=== PATIENT | female | born 1965 | race Caucasian/White ===

== ENCOUNTER 2024-04-24 02:25 | Inpatient (IN) | payer MEDICARE, OTHER, SELFPAY ==
[2024-04-24] VITALS (9 sets, daily range): BP systolic 120–142; BP diastolic 62–72; PULSE 109–115; RESP 13–26; TEMP 97.5–98.5; O2SAT 94–95
[~2024-04-24] VITALS: Ht 160 cm; Wt 75.0 kg
[2024-04-24 03:14] LABS: BASOPHILS # (AUTO) 0.1 X10'3 (0-0.2); BASOPHILS % (AUTO) 0.8 % (0-1); EOSINOPHILS # (AUTO) 0.2 X10'3 (0-0.9); EOSINOPHILS % (AUTO) 1.2 % (0-6); HEMATOCRIT 26.4 % (35.0-45.0); HEMOGLOBIN 8.4 g/dl (12.0-16.0); LYMPHOCYTES # (AUTO) 3.2 X10'3 (1.1-4.8); LYMPHOCYTES % (AUTO) 24.5 % (21-51); MEAN CORPUSCULAR HEMOGLOBIN 24.8 PG (27.0-31.0); MEAN CORPUSCULAR HGB CONC 31.9 g/dL (33.0-36.5); MEAN CORPUSCULAR VOLUME 77.8 FL (78-98); MEAN PLATELET VOLUME 8.1 FL (7.4-10.4); MONOCYTES # (AUTO) 1.1 X10'3 (0-0.9); MONOCYTES % (AUTO) 8.9 % (2-12); NEUTROPHILS # (AUTO) 8.3 X10'3 (1.8-7.7); NEUTROPHILS % (AUTO) 64.6 % (42-75); PLATELET COUNT 283 X10'3 (140-440); RED BLOOD COUNT 3.39 X10'6 (4.20-5.60); WHITE BLOOD COUNT 12.9 X10'3 (4.5-11.0)
[2024-04-24 03:22] LABS: ALANINE AMINOTRANSFERASE 38 U/L (12-78); ALBUMIN 1.6 G/DL (3.4-5.0); ALBUMIN/GLOBULIN RATIO 0.3 (1.1-1.5); ALKALINE PHOSPHATASE 103 IU/L (46-116); ANION GAP 8 (8-16); ASPARTATE AMINO TRANSFERASE 38 U/L (10-37); BILIRUBIN,TOTAL 0.2 MG/DL (0.1-1.0); BLOOD UREA NITROGEN 38 MG/DL (7-18); BUN/CREATININE RATIO 19.4 (10.0-20.0); CALCIUM 8.3 MG/DL (8.5-10.1); CHLORIDE 110 MMOL/L (99-107); CREATININE 1.96 MG/DL (0.40-0.90); GLUCOSE 156 MG/DL (70-104); POTASSIUM 4.4 MMOL/L (3.5-5.1); SODIUM 142 MMOL/L (135-145); TOTAL CARBON DIOXIDE 24.4 MMOL/L (24-32); TOTAL PROTEIN 6.3 G/DL (6.4-8.2); eCRCL 25 ML/MIN; eGFR 26 ML/MIN
[2024-04-24 03:33] LABS: PRO BRAIN NATRIURETIC PEPTIDE > 30000 PG/ML (0-125)
[2024-04-24] MEDS ORDERED: heparin 10,000 units/1 ML INJ IV PRN (03:55)
[2024-04-24] MEDS ORDERED: heparin 10,000 units/1 ML INJ IV ONE (03:55)
[2024-04-24] MEDS: furosemide 10 MG/1 ML 10ml inj IV ONE (04:12)
[2024-04-24] MEDS: aspirin 81mg tab.chew PO ONE (04:12)
[2024-04-24 04:34] LABS: APTT 31 SECONDS (22-32); PROTHROMBIN TIME 10.3 SECONDS (9.0-12.0)
[2024-04-24] MEDS: heparin 10,000 units/1 ML INJ IV ONE (04:47)
[2024-04-24] MEDS: heparin 25,000 UNIT/250ml bag 250 ML IV PRN (04:51)
[2024-04-24] MEDS: MESSAGE TO NURSING IV ONE (05:01)
[2024-04-24] MEDS ORDERED: magnesium sulf-water 2g/50mL 50 ML IV PRN (05:30)
[2024-04-24] MEDS ORDERED: magnesium hydroxide 30ml (MOM) UD suspension PO PRN ×2 (05:30→23:10)
[2024-04-24] MEDS ORDERED: potassium Cl 40MEQ/1/2NS 520ml 520 ML IV PRN (05:30)
[2024-04-24] MEDS ORDERED: magnesium sulf-water 4G/100mL 100 ML IV PRN (05:30)
[2024-04-24] MEDS ORDERED: acetaminophen 325mg tablet PO PRN (05:30)
[2024-04-24] MEDS ORDERED: potassium Cl 20 mEq SR tablet PO PRN ×2 (05:30)
[2024-04-24] MEDS ORDERED: mag hydrox/Alum hydrox/simeth 30ml oral suspension PO PRN (05:30)
[2024-04-24] MEDS ORDERED: magnesium Cl slow-release 64mg tablet PO PRN (05:30)
[2024-04-24] MEDS ORDERED: glucagon, human recombinant 1mg kit SUBCUT PRN (07:30)
[2024-04-24] MEDS ORDERED: DEXTROSE 15 GM of carb/4 tabs (each vial/BOTTLE has 4 tablets) PO PRN ×2 (07:30)
[2024-04-24] MEDS ORDERED: dextrose 50%-water 50ml dispensing syringe IV PRN ×2 (07:30)
[2024-04-24 07:58] LABS: MAGNESIUM 3.2 MG/DL (1.5-2.4); PHOSPHORUS 5.3 MG/DL (2.3-4.5)
[2024-04-24] MEDS: K and/or MAG REPLACEMENT MC SCH (08:00)
[2024-04-24] MEDS: atorvastatin 20mg tablet PO SCH (08:57)
[2024-04-24] MEDS: carVEDilol 3.125mg tablet PO SCH (08:58)
[2024-04-24] MEDS ORDERED: NORepinephrine 8 MG in NS 250 ML BAG (32 mcg/ml) IV ONE (09:00)
[2024-04-24] MEDS: furosemide 10 MG/1 ML 10ml inj IV SCH ×2 (09:00→20:00)
[2024-04-24] MEDS: furosemide 40mg/4ml inj IV ONE (10:25)
[2024-04-24 10:39] LABS: FERRITIN 215 NG/ML (8-252)
[2024-04-24 11:02] LABS: % IRON SATURATION 13 % (11-46); IRON 23 UG/DL (49-151); TOTAL IRON BINDING CAPACITY 180 UG/DL (259-388)
[2024-04-24 11:21] LABS: BILIRUBIN,URINE NEGATIVE (Neg); CLARITY,URINE CLEAR (Clear); COLOR,URINE STRAW (Yellow); GLUCOSE, URINE 100 mg/dl (Neg); KETONES,URINE NEGATIVE (Neg); LEUKOCYTE ESTERASE ,URINE NEGATIVE (Neg); NITRITES, URINE NEGATIVE (Neg); OCCULT BLOOD,URINE SMALL (Neg); PROTEIN,URINE 100 mg/dl (Neg); UROBILINOGEN,URINE 0.2 E.U/dL (0.2-1.0)
[2024-04-24 11:25] LABS: UA COLLECTION TYPE STRAIGHT CATH
[2024-04-24 11:27] LABS: WBC,URINE 0-4 /HPF (0-4)
[2024-04-24 11:28] LABS: BACTERIA,URINE NONE SEEN /HPF (Neg); MUCUS STRANDS NONE SEEN /LPF (Neg); SQUAMOUS EPITHELIAL CELL,UR FEW /LPF (FEW)
[2024-04-24] MEDS ORDERED: fentaNYL/PF 50MCG/1 ML 2ML syringe ONE (11:28)
[2024-04-24] MEDS ORDERED: heparin 1,000unit/ml 10ml vial 10 ML ONE (11:28)
[2024-04-24] MEDS ORDERED: iohexol 350MG/ML 100ml bottle IV ONE ×2 (11:28→12:40)
[2024-04-24] MEDS ORDERED: verapamil 2.5 mg/ml inj IV ONE (11:28)
[2024-04-24] MEDS ORDERED: midazolam 1 mg/ML 2ml injection ONE (11:28)
[2024-04-24] MEDS ORDERED: LIDOcaine 1% (10mg/ml) 2ml vial ONE (11:28)
[2024-04-24] MEDS ORDERED: iohexol 350 MG/ML 50ML vial IV ONE (11:28)
[2024-04-24] MEDS ORDERED: nitroGLYCERIN 500mcg/5mL D5W 5 ML IV ONE (11:29)
[2024-04-24] MEDS ORDERED: sodium bicarbonate 1meq/ml inj 150 ML in sodium chloride 0.45% 1,000 ML IV SCH (11:30)
[2024-04-24] MEDS: sodium bicarbonate (8.4%) 1 mEq/ml syringe IV ONE (11:38)
[2024-04-24] MEDS: INSULIN LISPRO 100 UNIT/ML INSULN.PEN MULTI-DOSE SQ SCH (12:00)
[2024-04-24 12:37] LABS: URINE AMPHETAMINE SCREEN NEGATIVE (Neg); URINE BARBITUATE SCREEN NEGATIVE (Neg); URINE BENZODIAZEPINES SCREEN NEGATIVE (Neg); URINE CANNABINOID SCREEN NEGATIVE (Neg); URINE COCAINE SCREEN NEGATIVE (Neg); URINE METHADONE SCREEN NEGATIVE (Neg); URINE OPIATE SCREEN NEGATIVE (Neg); URINE PHENCYCLIDINE SCREEN NEGATIVE (Neg)
[2024-04-24] MEDS ORDERED: DOPamine 400mg/D5W 250ml 250 ML IV ONE (13:14)
[2024-04-24] MEDS ORDERED: DOBUTamine-DoBUTrex 500mg/D5W 250 ML IV ONE (13:17)
[2024-04-24] MEDS ORDERED: furosemide 40mg/4ml inj ONE (13:25)
[2024-04-24] MEDS ORDERED: clopidogrel 300mg tablet ONE (13:29)
[2024-04-24 13:45] LABS: ISTAT HGB ART 7.1 g/dl (12.0-16.0); ISTAT Hct ART 21 %PCV (35-45); ISTAT O2 SATURATION ARTERIAL 88 % (95-98); ISTAT SOURCE ART
[2024-04-24] MEDS ORDERED: HYDROcodone/acetaminophen 10/325mg tab PO PRN ×2 (15:15→15:25)
[2024-04-24] MEDS ORDERED: HYDROcodone/acetaminophen 5mg/325mg tablet PO PRN (15:15)
[2024-04-24] MEDS ORDERED: clopidogrel 300mg tablet PO ONE (15:20)
[2024-04-24] MEDS ORDERED: metoprolol succinate 25mg (24-HOUR) SR. Tablet PO SCH (18:25)
[2024-04-24] MEDS: DOBUTamine 2000 MCG/250ML BAG IV SCH (19:12)
[2024-04-24] MEDS ORDERED: acetylcysteine 200 MG/ml 4ml vial PO ONE (20:00)
[2024-04-24] MEDS: docusate sod 100mg capsule PO SCH (21:30)
[2024-04-24] MEDS: acetylcysteine 200 MG/ml 4ml vial PO SCH (21:32)
[2024-04-25] VITALS (25 sets, daily range): BP systolic 94–135; BP diastolic 54–80; PULSE 83–110; RESP 12–31; TEMP 96.9–98.2; O2SAT 93–100
[2024-04-25] MEDS: HYDROcodone/acetaminophen 10/325mg tab PO PRN (00:11)
[2024-04-25] MEDS: ROSUVASTATIN CALCIUM 5 MG TABLET PO SCH (00:11)
[2024-04-25 05:52] LABS: BASOPHILS # (AUTO) 0.1 X10'3 (0-0.2); BASOPHILS % (AUTO) 0.5 % (0-1); EOSINOPHILS # (AUTO) 0.1 X10'3 (0-0.9); EOSINOPHILS % (AUTO) 0.8 % (0-6); HEMATOCRIT 23.4 % (35.0-45.0); HEMOGLOBIN 7.4 g/dl (12.0-16.0); LYMPHOCYTES # (AUTO) 2.7 X10'3 (1.1-4.8); LYMPHOCYTES % (AUTO) 25.4 % (21-51); MEAN CORPUSCULAR HEMOGLOBIN 24.3 PG (27.0-31.0); MEAN CORPUSCULAR HGB CONC 31.5 g/dL (33.0-36.5); MEAN CORPUSCULAR VOLUME 77.3 FL (78-98); MEAN PLATELET VOLUME 7.5 FL (7.4-10.4); MONOCYTES % (AUTO) 9.7 % (2-12); NEUTROPHILS # (AUTO) 6.7 X10'3 (1.8-7.7); NEUTROPHILS % (AUTO) 63.6 % (42-75); PLATELET COUNT 228 X10'3 (140-440); RED BLOOD COUNT 3.03 X10'6 (4.20-5.60); RED CELL DISTRIBUTION WIDTH 15.2 % (11.5-14.5); WHITE BLOOD COUNT 10.6 X10'3 (4.5-11.0)
[2024-04-25 06:08] LABS: ALANINE AMINOTRANSFERASE 28 U/L (12-78); ALBUMIN 1.2 G/DL (3.4-5.0); ALBUMIN/GLOBULIN RATIO 0.3 (1.1-1.5); ALKALINE PHOSPHATASE 79 IU/L (46-116); ANION GAP 10 (8-16); ASPARTATE AMINO TRANSFERASE 42 U/L (10-37); BILIRUBIN,TOTAL 0.2 MG/DL (0.1-1.0); BLOOD UREA NITROGEN 37 MG/DL (7-18); BUN/CREATININE RATIO 18.5 (10.0-20.0); CALCIUM 7.8 MG/DL (8.5-10.1); CHLORIDE 110 MMOL/L (99-107); CHOL/HDL RATIO 6.8 (0.00-4.99); CHOLESTEROL 246 MG/DL (0-200); GLUCOSE 125 MG/DL (70-104); HDL CHOLESTEROL 36 MG/DL (35-60); LDL CHOLESTEROL 153 MG/DL (50-100); POTASSIUM 4.2 MMOL/L (3.5-5.1); SODIUM 145 MMOL/L (135-145); TOTAL CARBON DIOXIDE 24.8 MMOL/L (24-32); TOTAL PROTEIN 5.3 G/DL (6.4-8.2); TRIGLYCERIDES 199 MG/DL (20-135); eCRCL 24 ML/MIN; eGFR 25 ML/MIN
[2024-04-25 06:36] LABS: PRO BRAIN NATRIURETIC PEPTIDE > 30000 PG/ML (0-125)
[2024-04-25] MEDS: lisinopril 5mg tablet PO SCH (07:58)
[2024-04-25] MEDS: DAPAGLIFLOZIN 10MG TABLET PO SCH (07:59)
[2024-04-25] MEDS ORDERED: losartan 50mg tablet PO SCH (08:00)
[2024-04-25] MEDS ORDERED: aspirin 81mg, enteric-coated 1 TAB TABLET.DR PO SCH (08:00)
[2024-04-25] MEDS: aspirin 81mg, enteric-coated 1 TAB TABLET.DR PO SCH (08:00)
[2024-04-25] MEDS: clopidogrel 75mg tablet PO SCH (08:00)
[2024-04-25] MEDS ORDERED: ROSUVASTATIN CALCIUM 5 MG TABLET PO SCH (08:00)
[2024-04-25] MEDS: carVEDilol 3.125mg tablet PO SCH (08:01)
[2024-04-25] MEDS ORDERED: aspirin 81mg tab.chew PO SCH (08:30)
[2024-04-25] MEDS ORDERED: LIDOcaine 1% (10mg/ml) 2ml vial ONE (11:32)
[2024-04-25] MEDS ORDERED: midazolam 1 mg/ML 2ml injection ONE (11:33)
[2024-04-25] MEDS ORDERED: heparin 1,000unit/ml 10ml vial 10 ML ONE (11:33)
[2024-04-25] MEDS ORDERED: verapamil 2.5 mg/ml inj IV ONE (11:33)
[2024-04-25] MEDS ORDERED: fentaNYL/PF 50MCG/1 ML 2ML syringe ONE (11:33)
[2024-04-25] MEDS ORDERED: nitroGLYCERIN 500mcg/5mL D5W 0 ML IV ONE (11:34)
[2024-04-25] MEDS ORDERED: iohexol 350MG/ML 100ml bottle IV ONE ×2 (11:34→13:08)
[2024-04-25] MEDS ORDERED: nitroGLYCERIN 500mcg/5mL D5W 5 ML IV ONE (11:36)
[2024-04-25] MEDS: sodium bicarbonate 1meq/ml inj 150 ML in sodium chloride 0.45% 1,000 ML IV ONE (12:10)
[2024-04-25] MEDS ORDERED: heparin 25,000 UNIT/250ml bag 250 ML IV ONE (13:24)
[2024-04-25] MEDS ORDERED: phenylephrine 10mg/ml inj. -priapism dosing ONE (13:29)
[2024-04-25] MEDS ORDERED: heparin 1,000 UNITS/NS 500ml 500 ML ONE (13:42)
[2024-04-25] MEDS ORDERED: epiNEPHrine 0.1mg/ml 10ml syringe ONE (14:09)
[2024-04-25] MEDS ORDERED: clopidogrel 300mg tablet ONE (14:20)
[2024-04-25] MEDS: propofol 1000mg/100ml bottle 100 ML IV SCH (15:20)
[2024-04-25] MEDS ORDERED: fentaNYL/PF 50MCG/1 ML 2ML syringe IV PRN (15:20)
[2024-04-25] MEDS: FENTANYL-0.9 % NACL/PF 100 ML IV SCH (15:20)
[2024-04-25 15:36] LABS: ABG BASE EXCESS -4.8 mmol/L (-2.0-3.0); ABG HCO3 19.2 mmol/L (21.0-28.0); ABG OXYGEN SATURATION 99.8 % (94.0-98.0); ABG PCO2 (T) 29.2 mmHg (32.0-45.0); ABG PH (T) 7.431 (7.350-7.450); ABG PO2 (T) 209.5 mmHg (83.0-108.0); FCOHb 0.3 % (0.5-1.5); FHHb 0.2 % (0.0-5.0); FMetHb 0.3 % (0.0-1.5); FO2Hb 99.2 % (94.0-98.0); MODE VENT - PRVC; PATIENT TEMPERATURE 35.9; PEEP 5 cm H2O; RESPIRATORY RATE 16 b/min; TIDAL VOLUME 450 mL
[2024-04-25 16:20] LABS: BASOPHILS % (AUTO) 0.3 % (0-1); EOSINOPHILS # (AUTO) 0.1 X10'3 (0-0.9); EOSINOPHILS % (AUTO) 0.4 % (0-6); LYMPHOCYTES # (AUTO) 1.6 X10'3 (1.1-4.8); LYMPHOCYTES % (AUTO) 11.8 % (21-51); MEAN CORPUSCULAR HEMOGLOBIN 24.3 PG (27.0-31.0); MEAN CORPUSCULAR HGB CONC 31.4 g/dL (33.0-36.5); MEAN CORPUSCULAR VOLUME 77.4 FL (78-98); MEAN PLATELET VOLUME 7.5 FL (7.4-10.4); MONOCYTES # (AUTO) 0.9 X10'3 (0-0.9); MONOCYTES % (AUTO) 6.7 % (2-12); NEUTROPHILS % (AUTO) 80.8 % (42-75); PLATELET COUNT 232 X10'3 (140-440); RED BLOOD COUNT 2.66 X10'6 (4.20-5.60); RED CELL DISTRIBUTION WIDTH 14.8 % (11.5-14.5); WHITE BLOOD COUNT 13.7 X10'3 (4.5-11.0)
[2024-04-25 16:26] LABS: HEMATOCRIT 20.6 % (35.0-45.0); HEMOGLOBIN 6.5 g/dl (12.0-16.0)
[2024-04-25 16:43] LABS: ALANINE AMINOTRANSFERASE 32 U/L (12-78); ALBUMIN/GLOBULIN RATIO 0.3 (1.1-1.5); ALKALINE PHOSPHATASE 89 IU/L (46-116); ANION GAP 10 (8-16); ASPARTATE AMINO TRANSFERASE 47 U/L (10-37); BILIRUBIN,TOTAL 0.5 MG/DL (0.1-1.0); BLOOD UREA NITROGEN 34 MG/DL (7-18); BUN/CREATININE RATIO 17.3 (10.0-20.0); CALCIUM 7.1 MG/DL (8.5-10.1); CHLORIDE 108 MMOL/L (99-107); CREATININE 1.96 MG/DL (0.40-0.90); GLUCOSE 276 MG/DL (70-104); POTASSIUM 3.9 MMOL/L (3.5-5.1); SODIUM 139 MMOL/L (135-145); TOTAL CARBON DIOXIDE 20.7 MMOL/L (24-32); TOTAL PROTEIN 4.6 G/DL (6.4-8.2); eCRCL 25 ML/MIN; eGFR 26 ML/MIN
[2024-04-25] MEDS ORDERED: OXAZEpam 15mg capsule PO PRN (16:55)
[2024-04-25] MEDS ORDERED: FERR236T3 PO (17:46)
[2024-04-25] MEDS ORDERED: MULT-1085 PO (17:46)
[2024-04-25] MEDS ORDERED: CYAN100097 PO (17:46)
[2024-04-25] MEDS ORDERED: MAGN400C PO (17:46)
[2024-04-25] MEDS ORDERED: CYAN100020 SL (17:46)
[2024-04-25] MEDS ORDERED: THIA100T70 PO (17:46)
[2024-04-25] MEDS ORDERED: CHOL100025 PO (17:46)
[2024-04-25] MEDS ORDERED: ASCO100031 PO (17:46)
[2024-04-25] MEDS: furosemide 40mg/4ml inj IV SCH (20:33)
[2024-04-25] MEDS: NORepinephrine 8mg/ 250ml NS 250 ML IV SCH (20:50)
[2024-04-25] MEDS: INSULIN LISPRO 100 UNIT/ML INSULN.PEN MULTI-DOSE SQ SCH (21:42)
[2024-04-26] VITALS (40 sets, daily range): BP systolic 83–149; BP diastolic 44–86; PULSE 76–107; RESP 12–26; TEMP 98.5; O2SAT 93–98
[2024-04-26 01:58] LABS: BASOPHILS % (AUTO) 0.2 % (0-1); EOSINOPHILS % (AUTO) 0.3 % (0-6); HEMATOCRIT 30.9 % (35.0-45.0); LYMPHOCYTES # (AUTO) 1.9 X10'3 (1.1-4.8); LYMPHOCYTES % (AUTO) 13.4 % (21-51); MEAN CORPUSCULAR HEMOGLOBIN 25.1 PG (27.0-31.0); MEAN CORPUSCULAR HGB CONC 32.2 g/dL (33.0-36.5); MEAN PLATELET VOLUME 7.8 FL (7.4-10.4); MONOCYTES # (AUTO) 1.4 X10'3 (0-0.9); MONOCYTES % (AUTO) 9.5 % (2-12); NEUTROPHILS # (AUTO) 11.1 X10'3 (1.8-7.7); NEUTROPHILS % (AUTO) 76.6 % (42-75); PLATELET COUNT 213 X10'3 (140-440); RED BLOOD COUNT 3.96 X10'6 (4.20-5.60); RED CELL DISTRIBUTION WIDTH 15.7 % (11.5-14.5); WHITE BLOOD COUNT 14.5 X10'3 (4.5-11.0)
[2024-04-26 02:15] LABS: ALANINE AMINOTRANSFERASE 31 U/L (12-78); ALBUMIN 1.2 G/DL (3.4-5.0); ALBUMIN/GLOBULIN RATIO 0.3 (1.1-1.5); ALKALINE PHOSPHATASE 85 IU/L (46-116); ANION GAP 8 (8-16); ASPARTATE AMINO TRANSFERASE 48 U/L (10-37); BILIRUBIN,TOTAL 1.3 MG/DL (0.1-1.0); BLOOD UREA NITROGEN 33 MG/DL (7-18); BUN/CREATININE RATIO 16.7 (10.0-20.0); CALCIUM 7.3 MG/DL (8.5-10.1); CHLORIDE 111 MMOL/L (99-107); CREATININE 1.98 MG/DL (0.40-0.90); GLUCOSE 124 MG/DL (70-104); SODIUM 143 MMOL/L (135-145); TOTAL CARBON DIOXIDE 23.9 MMOL/L (24-32); TRIGLYCERIDES 164 MG/DL (20-135); eCRCL 25 ML/MIN; eGFR 26 ML/MIN
[2024-04-26 03:28] LABS: ABG BASE EXCESS -2.8 mmol/L (-2.0-3.0); ABG HCO3 21.2 mmol/L (21.0-28.0); ABG OXYGEN SATURATION 95.3 % (94.0-98.0); ABG PCO2 (T) 33.4 mmHg (32.0-45.0); ABG PH (T) 7.419 (7.350-7.450); ALLEN'S TEST POSITIVE; FCOHb 0.9 % (0.5-1.5); FHHb 4.6 % (0.0-5.0); FMetHb 0.3 % (0.0-1.5); FO2Hb 94.2 % (94.0-98.0); MODE VENT - AC; PATIENT TEMPERATURE 36.8; PEEP 5 cm H2O; RESPIRATORY RATE 12 b/min; TIDAL VOLUME 450 mL; TOTAL HEMOGLOBIN 10.6 G/dl (12.0-16.0)
[2024-04-26] MEDS: metoprolol succinate 25mg (24-HOUR) SR. Tablet PO SCH (08:00)
[2024-04-26] MEDS: metolazone 2.5mg tablet PO SCH (10:57)
[2024-04-26] MEDS: dexamethasone 4mg/ml inj IV SCH (13:31)
[2024-04-26] MEDS: furosemide 40mg/4ml inj IV SCH (13:31)
[2024-04-26] MEDS: mineral oil/petrolatum ophthal oint EACHEYE SCH (20:00)
[2024-04-26] MEDS: docusate sodium 100mg/10ml UD cup PO SCH (20:58)
[2024-04-27] VITALS (39 sets, daily range): BP systolic 99–145; BP diastolic 50–88; PULSE 86–117; RESP 10–34; O2SAT 89–99
[2024-04-27 02:48] LABS: BASOPHILS % (AUTO) 0.1 % (0-1); EOSINOPHILS % (AUTO) 0 % (0-6); HEMATOCRIT 32.2 % (35.0-45.0); HEMOGLOBIN 10.7 g/dl (12.0-16.0); LYMPHOCYTES # (AUTO) 1.1 X10'3 (1.1-4.8); LYMPHOCYTES % (AUTO) 6.3 % (21-51); MEAN CORPUSCULAR HEMOGLOBIN 25.3 PG (27.0-31.0); MEAN CORPUSCULAR HGB CONC 33.1 g/dL (33.0-36.5); MEAN CORPUSCULAR VOLUME 76.5 FL (78-98); MEAN PLATELET VOLUME 7.6 FL (7.4-10.4); MONOCYTES # (AUTO) 0.5 X10'3 (0-0.9); NEUTROPHILS # (AUTO) 15.3 X10'3 (1.8-7.7); NEUTROPHILS % (AUTO) 90.6 % (42-75); PLATELET COUNT 240 X10'3 (140-440); RED BLOOD COUNT 4.21 X10'6 (4.20-5.60); RED CELL DISTRIBUTION WIDTH 16.3 % (11.5-14.5); WHITE BLOOD COUNT 16.9 X10'3 (4.5-11.0)
[2024-04-27 03:10] LABS: ALANINE AMINOTRANSFERASE 28 U/L (12-78); ALBUMIN 1.1 G/DL (3.4-5.0); ALBUMIN/GLOBULIN RATIO 0.3 (1.1-1.5); ALKALINE PHOSPHATASE 97 IU/L (46-116); ANION GAP 11 (8-16); ASPARTATE AMINO TRANSFERASE 34 U/L (10-37); BILIRUBIN,TOTAL 0.5 MG/DL (0.1-1.0); BLOOD UREA NITROGEN 38 MG/DL (7-18); BUN/CREATININE RATIO 16.2 (10.0-20.0); CALCIUM 7.9 MG/DL (8.5-10.1); CHLORIDE 108 MMOL/L (99-107); CREATININE 2.35 MG/DL (0.40-0.90); GLUCOSE 170 MG/DL (70-104); MAGNESIUM 2.5 MG/DL (1.5-2.4); PHOSPHORUS 6.6 MG/DL (2.3-4.5); POTASSIUM 3.3 MMOL/L (3.5-5.1); PREALBUMIN 11.8 MG/DL (19-36); SODIUM 143 MMOL/L (135-145); TOTAL CARBON DIOXIDE 23.7 MMOL/L (24-32); TOTAL PROTEIN 5.2 G/DL (6.4-8.2); eCRCL 21 ML/MIN; eGFR 21 ML/MIN
[2024-04-27 03:44] LABS: PRO BRAIN NATRIURETIC PEPTIDE > 30000 PG/ML (0-125)
[2024-04-27] MEDS: potassium Cl 20mEq/100mL bag 100 ML IV SCH (03:59)
[2024-04-27 04:55] LABS: ABG BASE EXCESS -2.7 mmol/L (-2.0-3.0); ABG HCO3 19.6 mmol/L (21.0-28.0); ABG PCO2 (T) 24.7 mmHg (32.0-45.0); ABG PH (T) 7.511 (7.350-7.450); ABG PO2 (T) 59.6 mmHg (83.0-108.0); ALLEN'S TEST Modified; FMetHb 0.3 % (0.0-1.5); FO2Hb 92.7 % (94.0-98.0); PATIENT TEMPERATURE 35.2; PEEP 5 cm H2O; RESPIRATORY RATE 16 b/min; TIDAL VOLUME 450 mL; TOTAL HEMOGLOBIN 11.3 G/dl (12.0-16.0)
[2024-04-27] MEDS ORDERED: racepinephrine 11.25mg/0.5ml nebule IH PRN (09:00)
[2024-04-27] MEDS: albuterol 2.5 MG/3 ML nebule NEB SCH (12:11)
[2024-04-27] MEDS ORDERED: potassium Cl 40MEQ/1/2NS 520ml 520 ML IV PRN (17:10)
[2024-04-27] MEDS ORDERED: magnesium Cl slow-release 64mg tablet PO PRN (17:10)
[2024-04-27] MEDS ORDERED: potassium Cl 20 mEq SR tablet PO PRN (17:10)
[2024-04-27] MEDS ORDERED: magnesium sulf-water 4G/100mL 100 ML IV PRN (17:10)
[2024-04-27] MEDS ORDERED: magnesium sulf-water 2g/50mL 50 ML IV PRN (17:10)
[2024-04-27] MEDS: furosemide 40mg/4ml inj IV SCH (20:40)
[2024-04-28] VITALS (39 sets, daily range): BP systolic 112–146; BP diastolic 58–81; PULSE 86–103; RESP 14–22; TEMP 97.7–98.6; O2SAT 93–100
[2024-04-28 02:05] LABS: BASOPHILS % (AUTO) 0.3 % (0-1); EOSINOPHILS % (AUTO) 0 % (0-6); HEMATOCRIT 34.3 % (35.0-45.0); HEMOGLOBIN 10.9 g/dl (12.0-16.0); LYMPHOCYTES # (AUTO) 1.2 X10'3 (1.1-4.8); LYMPHOCYTES % (AUTO) 6.2 % (21-51); MEAN CORPUSCULAR HEMOGLOBIN 24.8 PG (27.0-31.0); MEAN CORPUSCULAR HGB CONC 31.7 g/dL (33.0-36.5); MEAN CORPUSCULAR VOLUME 78.2 FL (78-98); MEAN PLATELET VOLUME 7.7 FL (7.4-10.4); MONOCYTES # (AUTO) 1.1 X10'3 (0-0.9); MONOCYTES % (AUTO) 5.9 % (2-12); NEUTROPHILS # (AUTO) 16.3 X10'3 (1.8-7.7); NEUTROPHILS % (AUTO) 87.6 % (42-75); PLATELET COUNT 280 X10'3 (140-440); RED BLOOD COUNT 4.39 X10'6 (4.20-5.60); RED CELL DISTRIBUTION WIDTH 16.3 % (11.5-14.5); WHITE BLOOD COUNT 18.7 X10'3 (4.5-11.0)
[2024-04-28 02:25] LABS: ALANINE AMINOTRANSFERASE 44 U/L (12-78); ALBUMIN 1.2 G/DL (3.4-5.0); ALBUMIN/GLOBULIN RATIO 0.3 (1.1-1.5); ALKALINE PHOSPHATASE 114 IU/L (46-116); ANION GAP 5 (8-16); ASPARTATE AMINO TRANSFERASE 43 U/L (10-37); BILIRUBIN,TOTAL 0.3 MG/DL (0.1-1.0); BLOOD UREA NITROGEN 49 MG/DL (7-18); BUN/CREATININE RATIO 16.7 (10.0-20.0); CALCIUM 8.1 MG/DL (8.5-10.1); CHLORIDE 107 MMOL/L (99-107); CREATININE 2.93 MG/DL (0.40-0.90); GLUCOSE 226 MG/DL (70-104); MAGNESIUM 2.7 MG/DL (1.5-2.4); PHOSPHORUS 6.8 MG/DL (2.3-4.5); POTASSIUM 4.1 MMOL/L (3.5-5.1); SODIUM 140 MMOL/L (135-145); TOTAL CARBON DIOXIDE 28.3 MMOL/L (24-32); TOTAL PROTEIN 5.4 G/DL (6.4-8.2); eCRCL 17 ML/MIN; eGFR 16 ML/MIN
[2024-04-28 02:59] LABS: PRO BRAIN NATRIURETIC PEPTIDE > 30000 PG/ML (0-125)
[2024-04-28] MEDS: ondansetron/PF 4mg/2ml inj IV PRN (10:49)
[2024-04-28 12:48] LABS: OSMOLALITY 315 MOSM/K (280-300)
[2024-04-29] VITALS (22 sets, daily range): BP systolic 116–147; BP diastolic 57–76; PULSE 84–101; RESP 14–25; TEMP 97.5–98; O2SAT 93–97
[2024-04-29] MEDS: HALLS - SOOTHE MENTHOL 1.8 MG cough drop LOZENGE MM PRN (04:40)
[2024-04-29 07:18] LABS: BASOPHILS % (AUTO) 0.1 % (0-1); EOSINOPHILS % (AUTO) 0.3 % (0-6); HEMATOCRIT 34.2 % (35.0-45.0); HEMOGLOBIN 10.8 g/dl (12.0-16.0); LYMPHOCYTES # (AUTO) 2.5 X10'3 (1.1-4.8); LYMPHOCYTES % (AUTO) 16.9 % (21-51); MEAN CORPUSCULAR HEMOGLOBIN 24.7 PG (27.0-31.0); MEAN CORPUSCULAR HGB CONC 31.7 g/dL (33.0-36.5); MEAN CORPUSCULAR VOLUME 78.1 FL (78-98); MEAN PLATELET VOLUME 7.6 FL (7.4-10.4); MONOCYTES # (AUTO) 1.5 X10'3 (0-0.9); MONOCYTES % (AUTO) 10.1 % (2-12); NEUTROPHILS # (AUTO) 10.6 X10'3 (1.8-7.7); NEUTROPHILS % (AUTO) 72.6 % (42-75); PLATELET COUNT 282 X10'3 (140-440); RED BLOOD COUNT 4.38 X10'6 (4.20-5.60); RED CELL DISTRIBUTION WIDTH 16.4 % (11.5-14.5); WHITE BLOOD COUNT 14.7 X10'3 (4.5-11.0)
[2024-04-29 07:42] LABS: ALANINE AMINOTRANSFERASE 30 U/L (12-78); ALBUMIN 1.2 G/DL (3.4-5.0); ALBUMIN/GLOBULIN RATIO 0.3 (1.1-1.5); ALKALINE PHOSPHATASE 96 IU/L (46-116); ANION GAP 11 (8-16); ASPARTATE AMINO TRANSFERASE 31 U/L (10-37); BILIRUBIN,TOTAL 0.2 MG/DL (0.1-1.0); BLOOD UREA NITROGEN 52 MG/DL (7-18); BUN/CREATININE RATIO 17.6 (10.0-20.0); CALCIUM 8.3 MG/DL (8.5-10.1); CHLORIDE 109 MMOL/L (99-107); CREATININE 2.96 MG/DL (0.40-0.90); GLUCOSE 109 MG/DL (70-104); POTASSIUM 3.6 MMOL/L (3.5-5.1); SODIUM 144 MMOL/L (135-145); TOTAL PROTEIN 5.3 G/DL (6.4-8.2); eCRCL 17 ML/MIN; eGFR 16 ML/MIN
[2024-04-29] MEDS: lactose-reduced food (Ensure Enlive) - 237ml bottle PO SCH ×2 (13:00→18:00)
[2024-04-29] MEDS: CefTRIAXone/D5W-Rocephin 1gm 50 ML IV SCH (17:28)
[2024-04-29] MEDS: azithromycin/NS 500mg/250ml 250 ML IV SCH (17:29)
[2024-04-29] MEDS ORDERED: baclofen 10mg tablet PO PRN (18:00)
[2024-04-30] VITALS (22 sets, daily range): BP systolic 116–154; BP diastolic 57–79; PULSE 80–106; RESP 10–26; TEMP 96.6–98.5; O2SAT 90–98
[2024-04-30] MEDS: INSULIN LISPRO 100 UNIT/ML INSULN.PEN MULTI-DOSE SQ SCH (07:00)
[2024-04-30 08:13] LABS: BASOPHILS # (AUTO) 0.1 X10'3 (0-0.2); BASOPHILS % (AUTO) 0.4 % (0-1); EOSINOPHILS # (AUTO) 0.1 X10'3 (0-0.9); EOSINOPHILS % (AUTO) 0.6 % (0-6); HEMATOCRIT 34.3 % (35.0-45.0); HEMOGLOBIN 10.9 g/dl (12.0-16.0); LYMPHOCYTES # (AUTO) 1.9 X10'3 (1.1-4.8); LYMPHOCYTES % (AUTO) 14.9 % (21-51); MEAN CORPUSCULAR HGB CONC 31.7 g/dL (33.0-36.5); MEAN CORPUSCULAR VOLUME 78.8 FL (78-98); MEAN PLATELET VOLUME 7.4 FL (7.4-10.4); MONOCYTES # (AUTO) 1.2 X10'3 (0-0.9); MONOCYTES % (AUTO) 9.3 % (2-12); NEUTROPHILS # (AUTO) 9.3 X10'3 (1.8-7.7); NEUTROPHILS % (AUTO) 74.8 % (42-75); PLATELET COUNT 253 X10'3 (140-440); RED BLOOD COUNT 4.35 X10'6 (4.20-5.60); RED CELL DISTRIBUTION WIDTH 16.2 % (11.5-14.5); WHITE BLOOD COUNT 12.4 X10'3 (4.5-11.0)
[2024-04-30 08:33] LABS: ALANINE AMINOTRANSFERASE 26 U/L (12-78); ALBUMIN 1.1 G/DL (3.4-5.0); ALBUMIN/GLOBULIN RATIO 0.3 (1.1-1.5); ALKALINE PHOSPHATASE 97 IU/L (46-116); ANION GAP 14 (8-16); ASPARTATE AMINO TRANSFERASE 23 U/L (10-37); BILIRUBIN,TOTAL 0.3 MG/DL (0.1-1.0); BLOOD UREA NITROGEN 49 MG/DL (7-18); BUN/CREATININE RATIO 17.8 (10.0-20.0); CALCIUM 8.2 MG/DL (8.5-10.1); CHLORIDE 110 MMOL/L (99-107); CREATININE 2.75 MG/DL (0.40-0.90); GLUCOSE 81 MG/DL (70-104); MAGNESIUM 2.8 MG/DL (1.5-2.4); PHOSPHORUS 4.9 MG/DL (2.3-4.5); POTASSIUM 3.3 MMOL/L (3.5-5.1); SODIUM 147 MMOL/L (135-145); TOTAL CARBON DIOXIDE 22.9 MMOL/L (24-32); TOTAL PROTEIN 5.1 G/DL (6.4-8.2); eCRCL 18 ML/MIN; eGFR 18 ML/MIN
[2024-04-30] MEDS: potassium Cl 20 mEq SR tablet PO PRN (10:32)
[2024-04-30] MEDS: predniSONE 20 mg tablet PO SCH (10:36)
[2024-05-01] VITALS (32 sets, daily range): BP systolic 120–153; BP diastolic 51–79; PULSE 95–120; RESP 14–34; TEMP 97.1–98.5; O2SAT 92–100
[2024-05-01] MEDS: ketorolac trometh 15mg/ml vial 15 MG/ML ML IV ONE (04:59)
[2024-05-01 06:44] LABS: BASOPHILS # (AUTO) 0.1 X10'3 (0-0.2); BASOPHILS % (AUTO) 0.5 % (0-1); EOSINOPHILS # (AUTO) 0.1 X10'3 (0-0.9); EOSINOPHILS % (AUTO) 0.5 % (0-6); HEMATOCRIT 36.3 % (35.0-45.0); HEMOGLOBIN 11.5 g/dl (12.0-16.0); LYMPHOCYTES # (AUTO) 1.8 X10'3 (1.1-4.8); LYMPHOCYTES % (AUTO) 13.1 % (21-51); MEAN CORPUSCULAR HEMOGLOBIN 24.8 PG (27.0-31.0); MEAN CORPUSCULAR HGB CONC 31.8 g/dL (33.0-36.5); MEAN CORPUSCULAR VOLUME 77.9 FL (78-98); MEAN PLATELET VOLUME 7.1 FL (7.4-10.4); MONOCYTES # (AUTO) 1.3 X10'3 (0-0.9); MONOCYTES % (AUTO) 9.6 % (2-12); NEUTROPHILS # (AUTO) 10.4 X10'3 (1.8-7.7); NEUTROPHILS % (AUTO) 76.3 % (42-75); PLATELET COUNT 267 X10'3 (140-440); RED BLOOD COUNT 4.65 X10'6 (4.20-5.60); WHITE BLOOD COUNT 13.6 X10'3 (4.5-11.0)
[2024-05-01 07:01] LABS: ALANINE AMINOTRANSFERASE 27 U/L (12-78); ALBUMIN 1.2 G/DL (3.4-5.0); ALBUMIN/GLOBULIN RATIO 0.3 (1.1-1.5); ALKALINE PHOSPHATASE 95 IU/L (46-116); ANION GAP 9 (8-16); ASPARTATE AMINO TRANSFERASE 19 U/L (10-37); BILIRUBIN,TOTAL 0.2 MG/DL (0.1-1.0); BLOOD UREA NITROGEN 51 MG/DL (7-18); CALCIUM 8.4 MG/DL (8.5-10.1); CHLORIDE 111 MMOL/L (99-107); CREATININE 2.68 MG/DL (0.40-0.90); GLUCOSE 153 MG/DL (70-104); MAGNESIUM 2.8 MG/DL (1.5-2.4); PHOSPHORUS 4.3 MG/DL (2.3-4.5); POTASSIUM 3.8 MMOL/L (3.5-5.1); PREALBUMIN 16.4 MG/DL (19-36); SODIUM 147 MMOL/L (135-145); TOTAL CARBON DIOXIDE 26.6 MMOL/L (24-32); TOTAL PROTEIN 5.3 G/DL (6.4-8.2); eCRCL 18 ML/MIN; eGFR 18 ML/MIN
[2024-05-01 08:27] LABS: ISTAT HGB MIX 6.8 g/dl (12.0-16.0); ISTAT Hct MIX 20 %PCV (35-45); ISTAT O2 SATURATION MIX VENOUS 48 % (60-80); ISTAT SOURCE VEN
[2024-05-01] MEDS: metoclopramide 5 mg/ml inj IV PRN (08:45)
[2024-05-01] MEDS: furosemide 20MG tablet PO ONE (14:21)
[2024-05-02] VITALS (27 sets, daily range): BP systolic 132–159; BP diastolic 42–89; PULSE 97–116; RESP 15–25; TEMP 97.1–97.9; O2SAT 94–98
[2024-05-02 05:56] LABS: BASOPHILS % (AUTO) 0.1 % (0-1); EOSINOPHILS # (AUTO) 0.1 X10'3 (0-0.9); EOSINOPHILS % (AUTO) 0.8 % (0-6); HEMATOCRIT 34.2 % (35.0-45.0); HEMOGLOBIN 10.6 g/dl (12.0-16.0); LYMPHOCYTES # (AUTO) 2.5 X10'3 (1.1-4.8); LYMPHOCYTES % (AUTO) 14.8 % (21-51); MEAN CORPUSCULAR HEMOGLOBIN 24.7 PG (27.0-31.0); MEAN CORPUSCULAR VOLUME 79.6 FL (78-98); MEAN PLATELET VOLUME 6.8 FL (7.4-10.4); MONOCYTES # (AUTO) 1.7 X10'3 (0-0.9); MONOCYTES % (AUTO) 10.1 % (2-12); NEUTROPHILS # (AUTO) 12.6 X10'3 (1.8-7.7); NEUTROPHILS % (AUTO) 74.2 % (42-75); PLATELET COUNT 291 X10'3 (140-440); RED BLOOD COUNT 4.29 X10'6 (4.20-5.60); RED CELL DISTRIBUTION WIDTH 16.1 % (11.5-14.5)
[2024-05-02 06:14] LABS: ALANINE AMINOTRANSFERASE 23 U/L (12-78); ALBUMIN 1.2 G/DL (3.4-5.0); ALBUMIN/GLOBULIN RATIO 0.3 (1.1-1.5); ALKALINE PHOSPHATASE 94 IU/L (46-116); ANION GAP 11 (8-16); ASPARTATE AMINO TRANSFERASE 18 U/L (10-37); BILIRUBIN,TOTAL 0.2 MG/DL (0.1-1.0); BLOOD UREA NITROGEN 52 MG/DL (7-18); BUN/CREATININE RATIO 20.6 (10.0-20.0); CALCIUM 8.3 MG/DL (8.5-10.1); CHLORIDE 111 MMOL/L (99-107); CREATININE 2.52 MG/DL (0.40-0.90); GLUCOSE 248 MG/DL (70-104); MAGNESIUM 2.7 MG/DL (1.5-2.4); PHOSPHORUS 3.6 MG/DL (2.3-4.5); POTASSIUM 3.5 MMOL/L (3.5-5.1); SODIUM 146 MMOL/L (135-145); TOTAL CARBON DIOXIDE 24.5 MMOL/L (24-32); TOTAL PROTEIN 5.1 G/DL (6.4-8.2); eCRCL 19 ML/MIN; eGFR 19 ML/MIN
[2024-05-02] MEDS ORDERED: DEXTROSE 15 GM of carb/4 tabs (each vial/BOTTLE has 4 tablets) PO PRN ×2 (17:45)
[2024-05-02] MEDS ORDERED: glucagon, human recombinant 1mg kit SUBCUT PRN (17:45)
[2024-05-02] MEDS ORDERED: dextrose 50%-water 50ml dispensing syringe IV PRN ×2 (17:45)
[2024-05-02] MEDS: INSULIN LISPRO 100 UNIT/ML INSULN.PEN MULTI-DOSE SQ SCH (21:51)
[2024-05-02] MEDS: INSULIN LISPRO 100 UNIT/ML INSULN.PEN MULTI-DOSE SQ ONE (23:43)
[2024-05-03] VITALS (17 sets, daily range): BP systolic 119–160; BP diastolic 62–85; PULSE 63–111; RESP 15–25; TEMP 97–97.6; O2SAT 92–99
[2024-05-03 06:59] LABS: BASOPHILS # (AUTO) 0.1 X10'3 (0-0.2); BASOPHILS % (AUTO) 0.3 % (0-1); EOSINOPHILS # (AUTO) 0.3 X10'3 (0-0.9); EOSINOPHILS % (AUTO) 1.5 % (0-6); HEMATOCRIT 32.9 % (35.0-45.0); HEMOGLOBIN 10.4 g/dl (12.0-16.0); LYMPHOCYTES # (AUTO) 3.5 X10'3 (1.1-4.8); LYMPHOCYTES % (AUTO) 19.6 % (21-51); MEAN CORPUSCULAR HEMOGLOBIN 24.8 PG (27.0-31.0); MEAN CORPUSCULAR HGB CONC 31.7 g/dL (33.0-36.5); MEAN CORPUSCULAR VOLUME 78.3 FL (78-98); MEAN PLATELET VOLUME 6.9 FL (7.4-10.4); MONOCYTES # (AUTO) 1.8 X10'3 (0-0.9); MONOCYTES % (AUTO) 10.4 % (2-12); NEUTROPHILS # (AUTO) 12.1 X10'3 (1.8-7.7); NEUTROPHILS % (AUTO) 68.2 % (42-75); PLATELET COUNT 271 X10'3 (140-440); RED BLOOD COUNT 4.21 X10'6 (4.20-5.60); RED CELL DISTRIBUTION WIDTH 15.6 % (11.5-14.5); WHITE BLOOD COUNT 17.7 X10'3 (4.5-11.0)
[2024-05-03 07:14] LABS: ALANINE AMINOTRANSFERASE 27 U/L (12-78); ALBUMIN 1.2 G/DL (3.4-5.0); ALBUMIN/GLOBULIN RATIO 0.3 (1.1-1.5); ALKALINE PHOSPHATASE 107 IU/L (46-116); ANION GAP 9 (8-16); ASPARTATE AMINO TRANSFERASE 16 U/L (10-37); BILIRUBIN,TOTAL 0.1 MG/DL (0.1-1.0); BLOOD UREA NITROGEN 45 MG/DL (7-18); BUN/CREATININE RATIO 21.2 (10.0-20.0); CALCIUM 8.1 MG/DL (8.5-10.1); CHLORIDE 108 MMOL/L (99-107); CREATININE 2.12 MG/DL (0.40-0.90); GLUCOSE 246 MG/DL (70-104); MAGNESIUM 2.6 MG/DL (1.5-2.4); PHOSPHORUS 3.2 MG/DL (2.3-4.5); POTASSIUM 3.7 MMOL/L (3.5-5.1); SODIUM 143 MMOL/L (135-145); TOTAL CARBON DIOXIDE 26.2 MMOL/L (24-32); TOTAL PROTEIN 5.1 G/DL (6.4-8.2); TRIGLYCERIDES 195 MG/DL (20-135); eCRCL 23 ML/MIN; eGFR 24 ML/MIN
[2024-05-03] MEDS: lisinopril 10 MG tablet PO SCH (12:23)
[2024-05-03] MEDS: carvedilol 6.25mg tablet PO SCH (12:23)
[2024-05-03] MEDS: EMPAGLIFLOZIN 10 MG TABLET PO SCH (12:24)
[2024-05-03] MEDS: potassium chloride 10mEq ER tablet PO SCH (17:44)
[2024-05-03] MEDS: furosemide 40mg/4ml inj IV ONE (17:44)
[2024-05-04] VITALS (12 sets, daily range): BP systolic 151–167; BP diastolic 73–87; PULSE 87–105; RESP 14–24; TEMP 97.2–98; O2SAT 90–96
[2024-05-04 06:49] LABS: MAGNESIUM 2.5 MG/DL (1.5-2.4); PHOSPHORUS 2.6 MG/DL (2.3-4.5); PREALBUMIN 22.1 MG/DL (19-36)
[2024-05-04] MEDS ORDERED: furosemide 40mg/4ml inj IV SCH (08:00)
[2024-05-04] MEDS ORDERED: potassium chloride 10mEq ER tablet PO SCH (08:00)
[2024-05-04] MEDS: potassium Cl 20 mEq SR tablet PO SCH (08:00)
[2024-05-04 08:03] LABS: BASOPHILS % (AUTO) 0.3 % (0-1); EOSINOPHILS % (AUTO) 0 % (0-6); HEMOGLOBIN 10.7 g/dl (12.0-16.0); LYMPHOCYTES # (AUTO) 2.1 X10'3 (1.1-4.8); LYMPHOCYTES % (AUTO) 11.8 % (21-51); MEAN CORPUSCULAR HEMOGLOBIN 24.7 PG (27.0-31.0); MEAN CORPUSCULAR HGB CONC 31.6 g/dL (33.0-36.5); MEAN CORPUSCULAR VOLUME 78.2 FL (78-98); MEAN PLATELET VOLUME 7.5 FL (7.4-10.4); MONOCYTES # (AUTO) 1.2 X10'3 (0-0.9); MONOCYTES % (AUTO) 6.5 % (2-12); NEUTROPHILS # (AUTO) 14.5 X10'3 (1.8-7.7); NEUTROPHILS % (AUTO) 81.4 % (42-75); PLATELET COUNT 270 X10'3 (140-440); RED BLOOD COUNT 4.35 X10'6 (4.20-5.60); RED CELL DISTRIBUTION WIDTH 15.7 % (11.5-14.5); WHITE BLOOD COUNT 17.8 X10'3 (4.5-11.0)
[2024-05-04 08:09] LABS: ALANINE AMINOTRANSFERASE 29 U/L (12-78); ALBUMIN 1.2 G/DL (3.4-5.0); ALBUMIN/GLOBULIN RATIO 0.3 (1.1-1.5); ALKALINE PHOSPHATASE 108 IU/L (46-116); ANION GAP 8 (8-16); ASPARTATE AMINO TRANSFERASE 16 U/L (10-37); BILIRUBIN,TOTAL 0.2 MG/DL (0.1-1.0); BLOOD UREA NITROGEN 58 MG/DL (7-18); BUN/CREATININE RATIO 28.7 (10.0-20.0); CALCIUM 8.3 MG/DL (8.5-10.1); CHLORIDE 107 MMOL/L (99-107); CREATININE 2.02 MG/DL (0.40-0.90); POTASSIUM 4.8 MMOL/L (3.5-5.1); SODIUM 140 MMOL/L (135-145); TOTAL CARBON DIOXIDE 25.5 MMOL/L (24-32); TOTAL PROTEIN 5.2 G/DL (6.4-8.2); eCRCL 24 ML/MIN; eGFR 25 ML/MIN
[2024-05-04] MEDS ORDERED: glucagon, human recombinant 1mg kit SUBCUT PRN (08:20)
[2024-05-04] MEDS ORDERED: dextrose 50%-water 50ml dispensing syringe IV PRN ×2 (08:20)
[2024-05-04] MEDS ORDERED: DEXTROSE 15 GM of carb/4 tabs (each vial/BOTTLE has 4 tablets) PO PRN ×2 (08:20)
[2024-05-04 08:24] LABS: GLUCOSE 407 MG/DL (70-104)
[2024-05-04] MEDS: ferrous gluconate 324mg tablet PO SCH (08:25)
[2024-05-04] MEDS: multivitamins, therapeutics tablet PO SCH (08:26)
[2024-05-04] MEDS: thiamine 100mg tablet PO SCH (08:26)
[2024-05-04] MEDS: cyanocobalamin 500mcg tablet PO SCH (08:27)
[2024-05-04] MEDS: cholecalciferol (vitamin D3) 1,000 unit (25mcg) tablet PO SCH (08:27)
[2024-05-04] MEDS: ascorbic acid 500mg tablet PO SCH (08:27)
[2024-05-04 08:33] LABS: ANISOCYTOSIS 1+; MICROCYTOSIS 1+; PLATELET ESTIMATE NORMAL; TOTAL CELLS COUNTED 100
[2024-05-04] MEDS: INSULIN LISPRO 100 UNIT/ML INSULN.PEN MULTI-DOSE SQ SCH (09:10)
[2024-05-04] MEDS: furosemide 40mg/4ml inj IV ONE (10:00)
[2024-05-04] MEDS: insulin glargine (Lantus) pen - multi-dose SQ ONE (10:01)
[2024-05-04 10:11] LABS: PRO BRAIN NATRIURETIC PEPTIDE > 30000 PG/ML (0-125)
== END 2024-05-04 16:37 | DRG 321 ==
LOC: ER 02:27 → ED HOLD 05:39 → PCU 3S 14:10 → CICU 2S 04-25 14:43 → PCU 3S 04-28 15:38
PROVIDERS: ADMIT Student in an Organized Health Care Education/Training Program; ATTEND Family Medicine
PROC: 027034Z Dilation of Coronary Artery, One Artery with Drug-eluting Intraluminal Device, Percutaneous Approach (ICD-10-PCS; 2024-04-24)
PROC: 4A023N8 Measurement of Cardiac Sampling and Pressure, Bilateral, Percutaneous Approach (ICD-10-PCS; 2024-04-24)
PROC: B2111ZZ Fluoroscopy of Multiple Coronary Arteries using Low Osmolar Contrast (ICD-10-PCS; 2024-04-24)
PROC: B2151ZZ Fluoroscopy of Left Heart using Low Osmolar Contrast (ICD-10-PCS; 2024-04-24)
PROC: 027034Z Dilation of Coronary Artery, One Artery with Drug-eluting Intraluminal Device, Percutaneous Approach (ICD-10-PCS; principal; 2024-04-25)
PROC: B2111ZZ Fluoroscopy of Multiple Coronary Arteries using Low Osmolar Contrast (ICD-10-PCS; 2024-04-25)
PROC: B2151ZZ Fluoroscopy of Left Heart using Low Osmolar Contrast (ICD-10-PCS; 2024-04-25)
PROC: BW281ZZ Computerized Tomography (CT Scan) of Head using Low Osmolar Contrast (ICD-10-PCS; 2024-04-25)
PROC: 30233N1 Transfusion of Nonautologous Red Blood Cells into Peripheral Vein, Percutaneous Approach (ICD-10-PCS; 2024-04-25)
PROC: 0BH17EZ Insertion of Endotracheal Airway into Trachea, Via Natural or Artificial Opening (ICD-10-PCS; 2024-04-25)
PROC: 5A1945Z Respiratory Ventilation, 24-96 Consecutive Hours (ICD-10-PCS; 2024-04-25)
PROC: 5A0935A Assistance with Respiratory Ventilation, Less than 24 Consecutive Hours, High Flow/Velocity Cannula (ICD-10-PCS; 2024-04-27)
DX: I21.4 Non-ST elevation (NSTEMI) myocardial infarction (principal); I46.9 Cardiac arrest, cause unspecified; N17.0 Acute kidney failure with tubular necrosis; J18.0 Bronchopneumonia, unspecified organism; I50.23 Acute on chronic systolic (congestive) heart failure; I25.10 Atherosclerotic heart disease of native coronary artery without angina pectoris; E11.42 Type 2 diabetes mellitus with diabetic polyneuropathy; E88.09 Other disorders of plasma-protein metabolism, not elsewhere classified; E11.22 Type 2 diabetes mellitus with diabetic chronic kidney disease; N18.9 Chronic kidney disease, unspecified; D63.8 Anemia in other chronic diseases classified elsewhere; E78.5 Hyperlipidemia, unspecified; E11.65 Type 2 diabetes mellitus with hyperglycemia; T38.0X5A Adverse effect of glucocorticoids and synthetic analogues, initial encounter; E83.51 Hypocalcemia; E87.5 Hyperkalemia; E83.39 Other disorders of phosphorus metabolism; E83.41 Hypermagnesemia; Y92.89 Other specified places as the place of occurrence of the external cause; Z79.899 Other long term (current) drug therapy; Z91.199 Patient's noncompliance with other medical treatment and regimen due to unspecified reason
CPT/HCPCS: 92950; 93306; 93308; 93453; 96365; 96375; 96376; 99285; C9600; 36415; 36430; 36600; 70450; 71045; 76770; 76937; 80053; 80061; 80305; 81001; 82570; 82728; 82803; 82948; 83036; 83540; 83550; 83605; 83735; 83880; 83930; 83935; 84100; 84134; 84145; 84156; 84300; 84478; 84484; 85007; 85014; 85018; 85025; 85347; 85610; 85730; 86885; 86900; 86901; 86920; 87040; 87070; 87077; 87081; 87186; 87207; 92508; 92616; 93005; 93458; 94002; 94003; 94640; 94760; 94799; 97110; 97116; 97162; 97530; 99152; 99153; A4314; A4615; A5200; A6212; A6213; A6222; A6223; A6258; A6260; A6449; C1725; C1729; C1751; C1769; C1874; C1894; G0378; J0171; J0456; J0461; J0696; J1100; J1250; J1265; J1644; J1815; J1885; J1940; J2250; J2370; J2405; J2704; J2765; J3010; J3480; J3490; J7030; J7040; J7512; P9016; Q9967

== ENCOUNTER 2024-05-31 10:27 | Inpatient (IN) | payer MEDICARE, OTHER ==
[~2024-05-31] VITALS: Ht 162.6 cm; Wt 64.5 kg
[2024-05-31] VITALS (8 sets, daily range): BP systolic 107–151; BP diastolic 64–97; PULSE 88–96; RESP 15–20; TEMP 98; O2SAT 96–97
[~2024-05-31 10:27] MED LIST: ASCO100031 PO; CHOL100025 PO; CYAN100097 PO; FERR236T3 PO; MAGN400C PO; MULT-1085 PO; THIA100T70 PO
[2024-05-31] MEDS: DOBUTamine-DoBUTrex 500mg/D5W 250 ML IV SCH (11:03)
[2024-05-31 11:23] LABS: BILIRUBIN,URINE NEGATIVE (Neg); CLARITY,URINE CLOUDY (Clear); COLOR,URINE STRAW (Yellow); GLUCOSE, URINE 500 mg/dl (Neg); KETONES,URINE NEGATIVE (Neg); LEUKOCYTE ESTERASE ,URINE TRACE (Neg); NITRITES, URINE NEGATIVE (Neg); OCCULT BLOOD,URINE MODERATE (Neg); PH,URINE 5.5 (4.8-8.0); PROTEIN,URINE 100 mg/dl (Neg); UROBILINOGEN,URINE 0.2 E.U/dL (0.2-1.0)
[2024-05-31 11:24] LABS: UA COLLECTION TYPE OTHER
[2024-05-31 11:28] LABS: COARSE GRANULAR CAST >30 /LPF (NEGATIVE)
[2024-05-31 11:29] LABS: AMORPHOUS URATES 4+; SQUAMOUS EPITHELIAL CELL,UR FEW /LPF (FEW); YEAST MANY /HPF (NEGATIVE)
[2024-05-31 11:30] LABS: BACTERIA,URINE FEW /HPF (Neg); TRANSITIONAL EPI CELLS,URINE FEW /HPF
[2024-05-31 11:31] LABS: RBC,URINE 50-100 /HPF (0-2); WBC,URINE TNTC /HPF (0-4)
[2024-05-31 11:38] LABS: BASOPHILS % (AUTO) 0.3 % (0-1); EOSINOPHILS # (AUTO) 0.3 X10'3 (0-0.9); EOSINOPHILS % (AUTO) 1.9 % (0-6); HEMATOCRIT 28.2 % (35.0-45.0); HEMOGLOBIN 8.8 g/dl (12.0-16.0); LYMPHOCYTES # (AUTO) 1.4 X10'3 (1.1-4.8); LYMPHOCYTES % (AUTO) 9.7 % (21-51); MEAN CORPUSCULAR HEMOGLOBIN 24.9 PG (27.0-31.0); MEAN CORPUSCULAR HGB CONC 31.4 g/dL (33.0-36.5); MEAN CORPUSCULAR VOLUME 79.3 FL (78-98); MEAN PLATELET VOLUME 7.1 FL (7.4-10.4); MONOCYTES # (AUTO) 0.6 X10'3 (0-0.9); NEUTROPHILS # (AUTO) 12.1 X10'3 (1.8-7.7); NEUTROPHILS % (AUTO) 84.1 % (42-75); PLATELET COUNT 214 X10'3 (140-440); RED BLOOD COUNT 3.55 X10'6 (4.20-5.60); RED CELL DISTRIBUTION WIDTH 17.5 % (11.5-14.5); WHITE BLOOD COUNT 14.4 X10'3 (4.5-11.0)
[2024-05-31 12:01] LABS: ALBUMIN 1.5 G/DL (3.4-5.0); ANION GAP 14 (8-16); BLOOD UREA NITROGEN 53 MG/DL (7-18); BUN/CREATININE RATIO 20.2 (10.0-20.0); CALCIUM 7.6 MG/DL (8.5-10.1); CHLORIDE 106 MMOL/L (99-107); CREATININE 2.63 MG/DL (0.40-0.90); GLUCOSE 183 MG/DL (70-104); SODIUM 136 MMOL/L (135-145); TOTAL CARBON DIOXIDE 15.6 MMOL/L (24-32); eCRCL 19 ML/MIN; eGFR 18 ML/MIN
[2024-05-31 12:11] LABS: POTASSIUM 2.8 MMOL/L (3.5-5.1)
[2024-05-31 12:30] LABS: PRO BRAIN NATRIURETIC PEPTIDE > 30000 PG/ML (0-125)
[2024-05-31 13:02] LABS: APTT 38 SECONDS (22-32); INR 1.1 INR; PROTHROMBIN TIME 11.7 SECONDS (9.0-12.0)
[2024-05-31] MEDS ORDERED: magnesium sulf-water 4G/100mL 100 ML IV PRN (14:30)
[2024-05-31] MEDS ORDERED: mag hydrox/Alum hydrox/simeth 30ml oral suspension PO PRN (14:30)
[2024-05-31] MEDS ORDERED: magnesium sulf-water 2g/50mL 50 ML IV PRN (14:30)
[2024-05-31] MEDS ORDERED: magnesium Cl slow-release 64mg tablet PO PRN (14:30)
[2024-05-31] MEDS ORDERED: magnesium hydroxide 30ml (MOM) UD suspension PO PRN (14:30)
[2024-05-31] MEDS ORDERED: ipratropium/albuterol 3ml nebule NEB PRN (14:40)
[2024-05-31 14:56] LABS: MAGNESIUM 1.9 MG/DL (1.5-2.4)
[2024-05-31] MEDS: furosemide 40mg/4ml inj IV SCH (15:27)
[2024-05-31] MEDS: CefTRIAXone/D5W-Rocephin 1gm 50 ML IV SCH (15:27)
[2024-05-31] MEDS ORDERED: spironolactone 50 MG tablet PO SCH (17:40)
[2024-05-31] MEDS ORDERED: baclofen 10mg tablet PO PRN (19:00)
[2024-05-31] MEDS ORDERED: DEXTROSE 15 GM of carb/4 tabs (each vial/BOTTLE has 4 tablets) PO PRN ×2 (19:10)
[2024-05-31] MEDS ORDERED: glucagon, human recombinant 1mg kit SUBCUT PRN (19:10)
[2024-05-31] MEDS ORDERED: dextrose 50%-water 50ml dispensing syringe IV PRN ×2 (19:10)
[2024-05-31] MEDS ORDERED: HYDROcodone/acetaminophen 5mg/325mg tablet PO PRN (19:15)
[2024-05-31] MEDS: docusate sod 100mg capsule PO SCH (20:00)
[2024-05-31] MEDS ORDERED: guaiFENesin ER 600mg tablet PO SCH (20:00)
[2024-05-31] MEDS: K and/or MAG REPLACEMENT MC SCH (20:06)
[2024-05-31] MEDS: potassium Cl 40MEQ/1/2NS 520ml 520 ML IV PRN (20:08)
[2024-05-31 20:35] LABS: % IRON SATURATION 68 % (11-46); IRON 54 UG/DL (49-151); TOTAL IRON BINDING CAPACITY 79 UG/DL (259-388)
[2024-05-31] MEDS: INSULIN LISPRO 100 UNIT/ML INSULN.PEN MULTI-DOSE SQ SCH (21:00)
[2024-05-31] MEDS: guaiFENesin ER 600mg tablet PO SCH (22:58)
[2024-05-31] MEDS: carvedilol 6.25mg tablet PO SCH (22:59)
[2024-05-31] MEDS: lisinopril 10 MG tablet PO ONE (22:59)
[2024-05-31] MEDS: metolazone 2.5mg tablet PO SCH (22:59)
[2024-05-31] MEDS: thiamine 100mg tablet PO ONE (22:59)
[2024-05-31] MEDS: spironolactone 50 MG tablet PO SCH (23:34)
[2024-05-31] MEDS: albumin (human) 25% 100 ML IV solution IV SCH (23:49)
[2024-06-01] VITALS (17 sets, daily range): BP systolic 90–150; BP diastolic 57–86; PULSE 79–98; RESP 13–23; TEMP 96.7–97.6; O2SAT 95–98
[2024-06-01 07:21] LABS: BASOPHILS % (AUTO) 0.3 % (0-1); EOSINOPHILS # (AUTO) 0.2 X10'3 (0-0.9); EOSINOPHILS % (AUTO) 1.2 % (0-6); HEMATOCRIT 27.5 % (35.0-45.0); LYMPHOCYTES # (AUTO) 1.6 X10'3 (1.1-4.8); LYMPHOCYTES % (AUTO) 10.9 % (21-51); MEAN CORPUSCULAR HEMOGLOBIN 25.4 PG (27.0-31.0); MEAN CORPUSCULAR HGB CONC 32.6 g/dL (33.0-36.5); MEAN CORPUSCULAR VOLUME 77.9 FL (78-98); MEAN PLATELET VOLUME 7.1 FL (7.4-10.4); MONOCYTES # (AUTO) 0.5 X10'3 (0-0.9); MONOCYTES % (AUTO) 3.4 % (2-12); NEUTROPHILS # (AUTO) 12.5 X10'3 (1.8-7.7); NEUTROPHILS % (AUTO) 84.2 % (42-75); PLATELET COUNT 194 X10'3 (140-440); RED BLOOD COUNT 3.52 X10'6 (4.20-5.60); WHITE BLOOD COUNT 14.9 X10'3 (4.5-11.0)
[2024-06-01 07:43] LABS: ALANINE AMINOTRANSFERASE 168 U/L (12-78); ALBUMIN 1.8 G/DL (3.4-5.0); ALBUMIN/GLOBULIN RATIO 0.6 (1.1-1.5); ALKALINE PHOSPHATASE 523 IU/L (46-116); ANION GAP 16 (8-16); ASPARTATE AMINO TRANSFERASE 103 U/L (10-37); BILIRUBIN,TOTAL 1.9 MG/DL (0.1-1.0); BLOOD UREA NITROGEN 53 MG/DL (7-18); BUN/CREATININE RATIO 18.7 (10.0-20.0); CALCIUM 7.8 MG/DL (8.5-10.1); CHLORIDE 107 MMOL/L (99-107); CHOL/HDL RATIO 5.8 (0.00-4.99); CHOLESTEROL 93 MG/DL (0-200); CREATININE 2.83 MG/DL (0.40-0.90); FREE T4 (FREE THYROXINE) 1.06 NG/DL (0.73-1.40); GLUCOSE 120 MG/DL (70-104); HDL CHOLESTEROL 16 MG/DL (35-60); LDL CHOLESTEROL 38 MG/DL (50-100); SODIUM 138 MMOL/L (135-145); THYROID STIMULATING HORMONE 0.78 ulU/ml (0.34-4.50); TOTAL CARBON DIOXIDE 15.1 MMOL/L (24-32); TOTAL PROTEIN 4.9 G/DL (6.4-8.2); TRIGLYCERIDES 249 MG/DL (20-135); eCRCL 18 ML/MIN; eGFR 17 ML/MIN
[2024-06-01 08:15] LABS: HIV ANTIBODY 1&2 RAPID NON-REACTIVE (Neg)
[2024-06-01 08:17] LABS: POTASSIUM 2.8 MMOL/L (3.5-5.1)
[2024-06-01 08:44] LABS: ABG BASE EXCESS -11.6 mmol/L (-2.0-3.0); ABG HCO3 11.9 mmol/L (21.0-28.0); ABG OXYGEN SATURATION 94.3 % (94.0-98.0); ABG PCO2 (T) 20.1 mmHg (32.0-45.0); ABG PH (T) 7.389 (7.350-7.450); ABG PO2 (T) 65.9 mmHg (83.0-108.0); ALLEN'S TEST POSITIVE; FCOHb 0.5 % (0.5-1.5); FHHb 5.7 % (0.0-5.0); FMetHb 0.3 % (0.0-1.5); FO2Hb 93.5 % (94.0-98.0); MODE ROOM AIR; PATIENT TEMPERATURE 36.2
[2024-06-01] MEDS: ferrous gluconate 324mg tablet PO SCH (09:00)
[2024-06-01] MEDS: aspirin 81mg tab.chew PO SCH (09:00)
[2024-06-01] MEDS: atorvastatin 20mg tablet PO SCH (09:01)
[2024-06-01] MEDS: EMPAGLIFLOZIN 10 MG TABLET PO SCH (09:01)
[2024-06-01] MEDS: clopidogrel 75mg tablet PO SCH (09:01)
[2024-06-01] MEDS: potassium Cl 20 mEq SR tablet PO PRN ×2 (09:02→23:28)
[2024-06-01] MEDS: pantoprazole 40mg Tablet.DR PO SCH (09:02)
[2024-06-01] MEDS: NUT.TX.GLUC.INTOLER,LAC-FR,SOY (GLUCERNA) 237 ML PO SCH (13:00)
[2024-06-01] MEDS: HYDROmorphone inj. 0.5 MG/0.5 ML DISP.SYRIN IV ONE (18:06)
[2024-06-01] MEDS ORDERED: furosemide 40mg/4ml inj IV SCH (20:00)
[2024-06-02] VITALS (20 sets, daily range): BP systolic 93–160; BP diastolic 46–82; PULSE 70–90; RESP 14–20; TEMP 96.7–98.3; O2SAT 97–99
[2024-06-02 06:14] LABS: HBSAG SCREEN Negative (Negative)
[2024-06-02 07:56] LABS: BASOPHILS # (AUTO) 0.1 X10'3 (0-0.2); BASOPHILS % (AUTO) 0.3 % (0-1); EOSINOPHILS # (AUTO) 0.2 X10'3 (0-0.9); EOSINOPHILS % (AUTO) 1.1 % (0-6); HEMATOCRIT 26.7 % (35.0-45.0); HEMOGLOBIN 8.9 g/dl (12.0-16.0); LYMPHOCYTES # (AUTO) 3.7 X10'3 (1.1-4.8); LYMPHOCYTES % (AUTO) 21.3 % (21-51); MEAN CORPUSCULAR HEMOGLOBIN 25.6 PG (27.0-31.0); MEAN CORPUSCULAR HGB CONC 33.3 g/dL (33.0-36.5); MEAN CORPUSCULAR VOLUME 76.9 FL (78-98); MEAN PLATELET VOLUME 7.4 FL (7.4-10.4); MONOCYTES # (AUTO) 0.7 X10'3 (0-0.9); NEUTROPHILS # (AUTO) 12.7 X10'3 (1.8-7.7); NEUTROPHILS % (AUTO) 73.3 % (42-75); PLATELET COUNT 142 X10'3 (140-440); RED BLOOD COUNT 3.48 X10'6 (4.20-5.60); RED CELL DISTRIBUTION WIDTH 17.9 % (11.5-14.5); WHITE BLOOD COUNT 17.3 X10'3 (4.5-11.0)
[2024-06-02 08:40] LABS: ALANINE AMINOTRANSFERASE 235 U/L (12-78); ALBUMIN 1.7 G/DL (3.4-5.0); ALBUMIN/GLOBULIN RATIO 0.6 (1.1-1.5); ALKALINE PHOSPHATASE 520 IU/L (46-116); ANION GAP 16 (8-16); ASPARTATE AMINO TRANSFERASE 142 U/L (10-37); BILIRUBIN,TOTAL 2.7 MG/DL (0.1-1.0); BLOOD UREA NITROGEN 53 MG/DL (7-18); BUN/CREATININE RATIO 17.9 (10.0-20.0); CALCIUM 8.1 MG/DL (8.5-10.1); CHLORIDE 110 MMOL/L (99-107); CREATININE 2.96 MG/DL (0.40-0.90); GLUCOSE 107 MG/DL (70-104); SODIUM 140 MMOL/L (135-145); TOTAL PROTEIN 4.4 G/DL (6.4-8.2); eCRCL 17 ML/MIN; eGFR 16 ML/MIN
[2024-06-02 09:02] LABS: TOTAL CARBON DIOXIDE 13.8 MMOL/L (24-32)
[2024-06-02 09:25] LABS: COMPLEMENT C3, SERUM 94 mg/dL (82-167); COMPLEMENT C4, SERUM 38 mg/dL (12-38)
[2024-06-02] MEDS: HYDROmorphone inj. 0.5 MG/0.5 ML DISP.SYRIN IV ONE (12:15)
[2024-06-02 13:44] LABS: ANTINUCLEAR ANTIBODIES Negative (Negative)
[2024-06-02] MEDS: sodium bicarbonate 1meq/ml inj 150 ML in dextrose 5%-water 1,000 ML IV SCH (14:41)
[2024-06-02] MEDS: furosemide inj 100 MG in normal saline 100ml IV soln 90 ML IV SCH (14:42)
[2024-06-02 15:11] LABS: ALBUMIN 2.2 g/dL (2.9-4.4); ALPHA-1-GLOBULIN 0.4 g/dL (0.0-0.4); ALPHA-2-GLOBULIN 0.6 g/dL (0.4-1.0); BETA GLOBULIN 0.8 g/dL (0.7-1.3); GAMMA GLOBULIN 0.4 g/dL (0.4-1.8); GLOBULIN, TOTAL 2.2 g/dL (2.2-3.9); M-SPIKE Not Observed g/dL (Not Observed); PROTEIN, TOTAL, SERUM 4.4 g/dL (6.0-8.5)
[2024-06-02] MEDS: acetaminophen 325mg tablet PO PRN (16:31)
[2024-06-03] VITALS (13 sets, daily range): BP systolic 107–154; BP diastolic 58–107; PULSE 79–94; RESP 15–24; TEMP 97.3–98; O2SAT 91–99
[2024-06-03 07:12] LABS: BASOPHILS % (AUTO) 0.2 % (0-1); EOSINOPHILS # (AUTO) 0.1 X10'3 (0-0.9); EOSINOPHILS % (AUTO) 0.8 % (0-6); HEMOGLOBIN 7.2 g/dl (12.0-16.0); LYMPHOCYTES # (AUTO) 3.9 X10'3 (1.1-4.8); LYMPHOCYTES % (AUTO) 28.7 % (21-51); MEAN CORPUSCULAR HEMOGLOBIN 25.3 PG (27.0-31.0); MEAN CORPUSCULAR HGB CONC 33.3 g/dL (33.0-36.5); MEAN CORPUSCULAR VOLUME 75.8 FL (78-98); MEAN PLATELET VOLUME 7.3 FL (7.4-10.4); MONOCYTES # (AUTO) 0.5 X10'3 (0-0.9); MONOCYTES % (AUTO) 3.7 % (2-12); NEUTROPHILS # (AUTO) 9.1 X10'3 (1.8-7.7); NEUTROPHILS % (AUTO) 66.6 % (42-75); PLATELET COUNT 112 X10'3 (140-440); RED BLOOD COUNT 2.84 X10'6 (4.20-5.60); RED CELL DISTRIBUTION WIDTH 18.5 % (11.5-14.5); WHITE BLOOD COUNT 13.6 X10'3 (4.5-11.0)
[2024-06-03 07:25] LABS: HEMATOCRIT 21.5 % (35.0-45.0)
[2024-06-03 07:50] LABS: ALANINE AMINOTRANSFERASE 340 U/L (12-78); ALBUMIN 2.7 G/DL (3.4-5.0); ALKALINE PHOSPHATASE 736 IU/L (46-116); ANION GAP 15 (8-16); ASPARTATE AMINO TRANSFERASE 227 U/L (10-37); BILIRUBIN,TOTAL 4.9 MG/DL (0.1-1.0); BLOOD UREA NITROGEN 55 MG/DL (7-18); BUN/CREATININE RATIO 16.8 (10.0-20.0); CALCIUM 7.9 MG/DL (8.5-10.1); CHLORIDE 108 MMOL/L (99-107); CREATININE 3.27 MG/DL (0.40-0.90); GLUCOSE 177 MG/DL (70-104); POTASSIUM 3.5 MMOL/L (3.5-5.1); SODIUM 139 MMOL/L (135-145); TOTAL CARBON DIOXIDE 16.2 MMOL/L (24-32); eCRCL 16 ML/MIN; eGFR 14 ML/MIN
[2024-06-03 07:53] LABS: ALBUMIN/GLOBULIN RATIO 1.2 (1.1-1.5); TOTAL PROTEIN 4.9 G/DL (6.4-8.2)
[2024-06-03 18:02] LABS: ALBUMIN 2.4 G/DL (3.4-5.0); ANION GAP 14 (8-16); BLOOD UREA NITROGEN 58 MG/DL (7-18); BUN/CREATININE RATIO 16.9 (10.0-20.0); CALCIUM 7.8 MG/DL (8.5-10.1); CHLORIDE 108 MMOL/L (99-107); CREATININE 3.43 MG/DL (0.40-0.90); GLUCOSE 211 MG/DL (70-104); MAGNESIUM 1.9 MG/DL (1.5-2.4); SODIUM 141 MMOL/L (135-145); TOTAL CARBON DIOXIDE 19.5 MMOL/L (24-32); eCRCL 15 ML/MIN; eGFR 14 ML/MIN
[2024-06-03 18:03] LABS: PHOSPHORUS 4.3 MG/DL (2.3-4.5)
[2024-06-03] MEDS ORDERED: potassium Cl 40MEQ/1/2NS 520ml 520 ML IV PRN (18:35)
[2024-06-03] MEDS ORDERED: magnesium Cl slow-release 64mg tablet PO PRN (18:35)
[2024-06-03] MEDS ORDERED: magnesium sulf-water 2g/50mL 50 ML IV PRN (18:35)
[2024-06-03] MEDS ORDERED: magnesium sulf-water 4G/100mL 100 ML IV PRN (18:35)
[2024-06-04] VITALS (25 sets, daily range): BP systolic 107–157; BP diastolic 44–77; PULSE 78–99; RESP 18–22; TEMP 97.5–98.7; O2SAT 92–98
[2024-06-04 05:36] LABS: BASOPHILS # (AUTO) 0.2 X10'3 (0-0.2); BASOPHILS % (AUTO) 1.5 % (0-1); EOSINOPHILS # (AUTO) 0.1 X10'3 (0-0.9); EOSINOPHILS % (AUTO) 0.6 % (0-6); HEMATOCRIT 26.2 % (35.0-45.0); HEMOGLOBIN 8.8 g/dl (12.0-16.0); LYMPHOCYTES # (AUTO) 3.2 X10'3 (1.1-4.8); LYMPHOCYTES % (AUTO) 23.5 % (21-51); MEAN CORPUSCULAR HEMOGLOBIN 25.8 PG (27.0-31.0); MEAN CORPUSCULAR HGB CONC 33.5 g/dL (33.0-36.5); MEAN PLATELET VOLUME 7.1 FL (7.4-10.4); MONOCYTES # (AUTO) 0.7 X10'3 (0-0.9); MONOCYTES % (AUTO) 5.2 % (2-12); NEUTROPHILS # (AUTO) 9.5 X10'3 (1.8-7.7); NEUTROPHILS % (AUTO) 69.2 % (42-75); PLATELET COUNT 79 X10'3 (140-440); RED CELL DISTRIBUTION WIDTH 18.5 % (11.5-14.5); WHITE BLOOD COUNT 13.8 X10'3 (4.5-11.0)
[2024-06-04 05:58] LABS: % IRON SATURATION 86 % (11-46); IRON 85 UG/DL (49-151); TOTAL IRON BINDING CAPACITY 99 UG/DL (259-388)
[2024-06-04 06:24] LABS: ALANINE AMINOTRANSFERASE 374 U/L (12-78); ALBUMIN 2.2 G/DL (3.4-5.0); ALKALINE PHOSPHATASE 833 IU/L (46-116); ANION GAP 13 (8-16); ASPARTATE AMINO TRANSFERASE 180 U/L (10-37); BILIRUBIN,TOTAL 5.9 MG/DL (0.1-1.0); BLOOD UREA NITROGEN 60 MG/DL (7-18); BUN/CREATININE RATIO 17.1 (10.0-20.0); CALCIUM 7.6 MG/DL (8.5-10.1); CHLORIDE 107 MMOL/L (99-107); CREATININE 3.51 MG/DL (0.40-0.90); FERRITIN 4655 NG/ML (8-252); GLUCOSE 210 MG/DL (70-104); MAGNESIUM 1.9 MG/DL (1.5-2.4); PHOSPHORUS 4.4 MG/DL (2.3-4.5); SODIUM 141 MMOL/L (135-145); TOTAL CARBON DIOXIDE 21.3 MMOL/L (24-32); TOTAL PROTEIN 4.3 G/DL (6.4-8.2); eCRCL 15 ML/MIN; eGFR 13 ML/MIN
[2024-06-04 06:32] LABS: POTASSIUM 2.7 MMOL/L (3.5-5.1)
[2024-06-04] MEDS ORDERED: potassium Cl 40MEQ/1/2NS 520ml 520 ML IV PRN (06:35)
[2024-06-04] MEDS: potassium Cl 20 mEq SR tablet PO PRN ×2 (08:41→19:30)
[2024-06-04 12:17] LABS: ALBUMIN 2.1 G/DL (3.4-5.0); ANION GAP 12 (8-16); BLOOD UREA NITROGEN 64 MG/DL (7-18); BUN/CREATININE RATIO 18.3 (10.0-20.0); CHLORIDE 107 MMOL/L (99-107); GLUCOSE 214 MG/DL (70-104); MAGNESIUM 1.9 MG/DL (1.5-2.4); POTASSIUM 3.2 MMOL/L (3.5-5.1); SODIUM 141 MMOL/L (135-145); TOTAL CARBON DIOXIDE 22.4 MMOL/L (24-32); eCRCL 15 ML/MIN; eGFR 13 ML/MIN
[2024-06-04 12:25] LABS: PHOSPHORUS 4.4 MG/DL (2.3-4.5)
[2024-06-04 17:56] LABS: ANION GAP 11 (8-16); BLOOD UREA NITROGEN 65 MG/DL (7-18); CALCIUM 7.9 MG/DL (8.5-10.1); CHLORIDE 108 MMOL/L (99-107); CREATININE 3.61 MG/DL (0.40-0.90); GLUCOSE 233 MG/DL (70-104); MAGNESIUM 1.9 MG/DL (1.5-2.4); POTASSIUM 3.4 MMOL/L (3.5-5.1); SODIUM 142 MMOL/L (135-145); TOTAL CARBON DIOXIDE 23.4 MMOL/L (24-32); eCRCL 14 ML/MIN; eGFR 13 ML/MIN
[2024-06-04 17:58] LABS: PHOSPHORUS 4.3 MG/DL (2.3-4.5)
[2024-06-05] VITALS (26 sets, daily range): BP systolic 95–137; BP diastolic 39–63; PULSE 61–90; RESP 16–78; TEMP 98.2–99.2; O2SAT 96–100
[2024-06-05 00:58] LABS: BASOPHILS # (AUTO) 0.1 X10'3 (0-0.2); EOSINOPHILS % (AUTO) 0.4 % (0-6); LYMPHOCYTES # (AUTO) 2.4 X10'3 (1.1-4.8); MEAN CORPUSCULAR HEMOGLOBIN 25.6 PG (27.0-31.0); MONOCYTES # (AUTO) 0.9 X10'3 (0-0.9); NEUTROPHILS # (AUTO) 7.8 X10'3 (1.8-7.7); NEUTROPHILS % (AUTO) 68.9 % (42-75)
[2024-06-05 01:00] LABS: BASOPHILS % (AUTO) 1.3 % (0-1); EOSINOPHILS # (AUTO) 0.1 X10'3 (0-0.9); HEMATOCRIT 23.9 % (35.0-45.0); LYMPHOCYTES % (AUTO) 21.3 % (21-51); MEAN CORPUSCULAR HGB CONC 33.4 g/dL (33.0-36.5); MEAN CORPUSCULAR VOLUME 76.7 FL (78-98); MEAN PLATELET VOLUME 7.5 FL (7.4-10.4); MONOCYTES % (AUTO) 8.1 % (2-12); PLATELET COUNT 53 X10'3 (140-440); RED BLOOD COUNT 3.11 X10'6 (4.20-5.60); RED CELL DISTRIBUTION WIDTH 18.7 % (11.5-14.5); WHITE BLOOD COUNT 11.3 X10'3 (4.5-11.0)
[2024-06-05 01:26] LABS: ALANINE AMINOTRANSFERASE 387 U/L (12-78); ALBUMIN 1.7 G/DL (3.4-5.0); ANION GAP 7 (8-16); ASPARTATE AMINO TRANSFERASE 198 U/L (10-37); BILIRUBIN,TOTAL 6.2 MG/DL (0.1-1.0); BLOOD UREA NITROGEN 61 MG/DL (7-18); BUN/CREATININE RATIO 17.2 (10.0-20.0); CALCIUM 7.1 MG/DL (8.5-10.1); CHLORIDE 101 MMOL/L (99-107); CREATININE 3.55 MG/DL (0.40-0.90); MAGNESIUM 1.8 MG/DL (1.5-2.4); POTASSIUM 3.3 MMOL/L (3.5-5.1); SODIUM 140 MMOL/L (135-145); TOTAL CARBON DIOXIDE 32.5 MMOL/L (24-32); eCRCL 14 ML/MIN; eGFR 13 ML/MIN
[2024-06-05 01:29] LABS: ALBUMIN/GLOBULIN RATIO 0.9 (1.1-1.5); ALKALINE PHOSPHATASE 1086 IU/L (46-116); PHOSPHORUS 3.8 MG/DL (2.3-4.5); TOTAL PROTEIN 3.7 G/DL (6.4-8.2)
[2024-06-05 01:32] LABS: GLUCOSE 520 MG/DL (70-104)
[2024-06-05] MEDS: insulin glargine (Lantus) pen - multi-dose SQ SCH (01:55)
[2024-06-05] MEDS ORDERED: INSULIN LISPRO 100 UNIT/ML INSULN.PEN MULTI-DOSE SQ SCH (01:55)
[2024-06-05] MEDS: ipratropium/albuterol 3ml nebule NEB SCH (08:36)
[2024-06-05] MEDS: INSULIN LISPRO 100 UNIT/ML INSULN.PEN MULTI-DOSE SQ SCH (09:08)
[2024-06-05] MEDS: PERFLUTREN PROTEIN-A MICROSPHR (Optison) 0.22 MG/ML 3ML VIAL IV ONE (11:15)
[2024-06-05 12:33] LABS: ALBUMIN 1.8 G/DL (3.4-5.0); ANION GAP 10 (8-16); BLOOD UREA NITROGEN 66 MG/DL (7-18); BUN/CREATININE RATIO 16.9 (10.0-20.0); CALCIUM 7.6 MG/DL (8.5-10.1); CHLORIDE 107 MMOL/L (99-107); CREATININE 3.91 MG/DL (0.40-0.90); GLUCOSE 186 MG/DL (70-104); POTASSIUM 3.3 MMOL/L (3.5-5.1); SODIUM 143 MMOL/L (135-145); TOTAL CARBON DIOXIDE 25.8 MMOL/L (24-32); eCRCL 13 ML/MIN; eGFR 12 ML/MIN
[2024-06-05 12:43] LABS: TOTAL PROTEIN,URINE RANDOM 221.9 MG/DL
[2024-06-05 12:43] LABS: PHOSPHORUS 4.3 MG/DL (2.3-4.5)
[2024-06-05] MEDS: albumin (human) 25% 100 ML IV solution IV SCH (14:24)
[2024-06-05] MEDS: LIDOcaine 1% (10mg/ml) 2ml vial ONE ×2 (16:01)
[2024-06-05] MEDS: LIDOcaine 1% (10mg/ml) 2ml vial SQ ONE ×6 (16:02→16:07)
[2024-06-05 16:49] LABS: PREALBUMIN 10.3 MG/DL (19-36)
[2024-06-06] VITALS (21 sets, daily range): BP systolic 99–137; BP diastolic 51–71; PULSE 87–100; RESP 15–24; TEMP 97.1–97.7; O2SAT 89–98
[2024-06-06] MEDS: ondansetron/PF 4mg/2ml inj IV PRN (03:43)
[2024-06-06 06:14] LABS: ALANINE AMINOTRANSFERASE 294 U/L (12-78); ALBUMIN 3.7 G/DL (3.4-5.0); ALKALINE PHOSPHATASE 757 IU/L (46-116); ANION GAP 14 (8-16); ASPARTATE AMINO TRANSFERASE 125 U/L (10-37); BILIRUBIN,TOTAL 7.6 MG/DL (0.1-1.0); BLOOD UREA NITROGEN 69 MG/DL (7-18); BUN/CREATININE RATIO 17.2 (10.0-20.0); CALCIUM 8.1 MG/DL (8.5-10.1); CHLORIDE 106 MMOL/L (99-107); CREATININE 4.02 MG/DL (0.40-0.90); GLUCOSE 87 MG/DL (70-104); SODIUM 145 MMOL/L (135-145); TOTAL CARBON DIOXIDE 25.4 MMOL/L (24-32); eCRCL 13 ML/MIN; eGFR 11 ML/MIN
[2024-06-06 06:22] LABS: ALBUMIN/GLOBULIN RATIO 2.3 (1.1-1.5); PHOSPHORUS 4.4 MG/DL (2.3-4.5); TOTAL PROTEIN 5.3 G/DL (6.4-8.2)
[2024-06-06] MEDS: POTASSIUM CHLORIDE 20 MEQ/15 ML oral solution PO PRN (07:25)
[2024-06-06 08:05] LABS: BASOPHILS % (AUTO) 0.4 % (0-1); EOSINOPHILS % (AUTO) 0.3 % (0-6); LYMPHOCYTES # (AUTO) 1.9 X10'3 (1.1-4.8)
[2024-06-06 08:07] LABS: LYMPHOCYTES % (AUTO) 20.7 % (21-51); MEAN CORPUSCULAR HEMOGLOBIN 25.9 PG (27.0-31.0); MEAN CORPUSCULAR HGB CONC 33.3 g/dL (33.0-36.5); MEAN CORPUSCULAR VOLUME 77.8 FL (78-98); MONOCYTES # (AUTO) 0.7 X10'3 (0-0.9); MONOCYTES % (AUTO) 7.6 % (2-12); NEUTROPHILS # (AUTO) 6.6 X10'3 (1.8-7.7); RED BLOOD COUNT 2.68 X10'6 (4.20-5.60); RED CELL DISTRIBUTION WIDTH 18.7 % (11.5-14.5); WHITE BLOOD COUNT 9.2 X10'3 (4.5-11.0)
[2024-06-06 08:25] LABS: HEMATOCRIT 20.9 % (35.0-45.0)
[2024-06-06 08:26] LABS: PLATELET COUNT 36 X10'3 (140-440)
[2024-06-06 08:56] LABS: ANISOCYTOSIS 2+; HYPOCHROMASIA 2+; MICROCYTOSIS 1+; PLATELET ESTIMATE DECREASED; TARGET CELLS FEW
[2024-06-06 08:57] LABS: ELLIPTOCYTES FEW; STOMATOCYTES 1+; TEAR DROP CELLS FEW
[2024-06-06 09:02] LABS: EOSINOPHILS % (AUTO) 0.1 % (0-6); MEAN CORPUSCULAR VOLUME 77.5 FL (78-98)
[2024-06-06 09:07] LABS: BASOPHILS % (AUTO) 0.3 % (0-1); HEMOGLOBIN 7.3 g/dl (12.0-16.0); LYMPHOCYTES % (AUTO) 18.8 % (21-51); MEAN CORPUSCULAR HEMOGLOBIN 26.3 PG (27.0-31.0); MEAN PLATELET VOLUME 7.3 FL (7.4-10.4); MONOCYTES # (AUTO) 0.9 X10'3 (0-0.9); MONOCYTES % (AUTO) 7.9 % (2-12); NEUTROPHILS # (AUTO) 7.9 X10'3 (1.8-7.7); NEUTROPHILS % (AUTO) 72.9 % (42-75); RED BLOOD COUNT 2.76 X10'6 (4.20-5.60); RED CELL DISTRIBUTION WIDTH 18.6 % (11.5-14.5); WHITE BLOOD COUNT 10.8 X10'3 (4.5-11.0)
[2024-06-06 09:14] LABS: HEMATOCRIT 21.4 % (35.0-45.0); PLATELET COUNT 36 X10'3 (140-440)
[2024-06-06 12:23] LABS: ANION GAP 12 (8-16); BLOOD UREA NITROGEN 68 MG/DL (7-18); BUN/CREATININE RATIO 16.4 (10.0-20.0); CALCIUM 7.6 MG/DL (8.5-10.1); CHLORIDE 108 MMOL/L (99-107); CREATININE 4.14 MG/DL (0.40-0.90); GLUCOSE 121 MG/DL (70-104); POTASSIUM 3.3 MMOL/L (3.5-5.1); SODIUM 145 MMOL/L (135-145); TOTAL CARBON DIOXIDE 24.8 MMOL/L (24-32); eCRCL 12 ML/MIN; eGFR 11 ML/MIN
[2024-06-06 12:34] LABS: PHOSPHORUS 4.6 MG/DL (2.3-4.5)
[2024-06-06] MEDS: INSULIN LISPRO 100 UNIT/ML INSULN.PEN MULTI-DOSE SQ SCH (14:00)
[2024-06-06 18:15] LABS: ALBUMIN 2.9 G/DL (3.4-5.0); ANION GAP 12 (8-16); BLOOD UREA NITROGEN 76 MG/DL (7-18); BUN/CREATININE RATIO 17.4 (10.0-20.0); CALCIUM 7.8 MG/DL (8.5-10.1); CHLORIDE 108 MMOL/L (99-107); CREATININE 4.38 MG/DL (0.40-0.90); GLUCOSE 151 MG/DL (70-104); SODIUM 145 MMOL/L (135-145); TOTAL CARBON DIOXIDE 25.3 MMOL/L (24-32); eCRCL 12 ML/MIN; eGFR 10 ML/MIN
[2024-06-06 18:39] LABS: PHOSPHORUS 4.5 MG/DL (2.3-4.5); POTASSIUM 3.6 MMOL/L (3.5-5.1)
[2024-06-07] VITALS (25 sets, daily range): BP systolic 90–125; BP diastolic 48–60; PULSE 66–113; RESP 15–29; TEMP 97.2–98.6; O2SAT 95–100
[2024-06-07 01:11] LABS: ALBUMIN 2.8 G/DL (3.4-5.0); ANION GAP 11 (8-16); BLOOD UREA NITROGEN 78 MG/DL (7-18); BUN/CREATININE RATIO 17.3 (10.0-20.0); CALCIUM 7.9 MG/DL (8.5-10.1); CHLORIDE 109 MMOL/L (99-107); CREATININE 4.51 MG/DL (0.40-0.90); GLUCOSE 212 MG/DL (70-104); SODIUM 144 MMOL/L (135-145); TOTAL CARBON DIOXIDE 23.6 MMOL/L (24-32); eCRCL 11 ML/MIN; eGFR 10 ML/MIN
[2024-06-07 01:23] LABS: PHOSPHORUS 4.5 MG/DL (2.3-4.5)
[2024-06-07 08:10] LABS: ALBUMIN 2.6 G/DL (3.4-5.0); ANION GAP 11 (8-16); BLOOD UREA NITROGEN 80 MG/DL (7-18); BUN/CREATININE RATIO 17.4 (10.0-20.0); CALCIUM 7.9 MG/DL (8.5-10.1); CHLORIDE 109 MMOL/L (99-107); CREATININE 4.59 MG/DL (0.40-0.90); GLUCOSE 235 MG/DL (70-104); POTASSIUM 3.5 MMOL/L (3.5-5.1); SODIUM 145 MMOL/L (135-145); TOTAL CARBON DIOXIDE 24.8 MMOL/L (24-32); eCRCL 11 ML/MIN; eGFR 10 ML/MIN
[2024-06-07 08:11] LABS: PHOSPHORUS 4.1 MG/DL (2.3-4.5)
[2024-06-07 14:10] LABS: ALBUMIN 2.5 G/DL (3.4-5.0); ANION GAP 11 (8-16); BLOOD UREA NITROGEN 83 MG/DL (7-18); CALCIUM 7.6 MG/DL (8.5-10.1); CHLORIDE 108 MMOL/L (99-107); CREATININE 4.62 MG/DL (0.40-0.90); GLUCOSE 277 MG/DL (70-104); SODIUM 144 MMOL/L (135-145); TOTAL CARBON DIOXIDE 25.2 MMOL/L (24-32); eCRCL 11 ML/MIN; eGFR 10 ML/MIN
[2024-06-07 14:14] LABS: PHOSPHORUS 4.1 MG/DL (2.3-4.5); POTASSIUM 3.2 MMOL/L (3.5-5.1)
[2024-06-07 19:31] LABS: ALBUMIN 2.4 G/DL (3.4-5.0); ANION GAP 12 (8-16); BLOOD UREA NITROGEN 86 MG/DL (7-18); BUN/CREATININE RATIO 18.1 (10.0-20.0); CALCIUM 7.8 MG/DL (8.5-10.1); CHLORIDE 108 MMOL/L (99-107); CREATININE 4.76 MG/DL (0.40-0.90); GLUCOSE 300 MG/DL (70-104); SODIUM 145 MMOL/L (135-145); TOTAL CARBON DIOXIDE 25.5 MMOL/L (24-32); eCRCL 11 ML/MIN; eGFR 9 ML/MIN
[2024-06-07 19:46] LABS: PHOSPHORUS 4.3 MG/DL (2.3-4.5); POTASSIUM 3.1 MMOL/L (3.5-5.1)
[2024-06-07] MEDS: POTASSIUM CHLORIDE 20 MEQ/15 ML oral solution PO PRN (21:02)
[2024-06-07 21:58] LABS: LYMPHOCYTES # (AUTO) 1.7 X10'3 (1.1-4.8); LYMPHOCYTES % (AUTO) 13.2 % (21-51); MEAN CORPUSCULAR HGB CONC 32.6 g/dL (33.0-36.5)
[2024-06-07 21:59] LABS: BASOPHILS % (AUTO) 0.4 % (0-1); EOSINOPHILS % (AUTO) 0 % (0-6); MEAN CORPUSCULAR HEMOGLOBIN 26.2 PG (27.0-31.0); MEAN CORPUSCULAR VOLUME 80.4 FL (78-98); MEAN PLATELET VOLUME 10.1 FL (7.4-10.4); MONOCYTES # (AUTO) 1.2 X10'3 (0-0.9); MONOCYTES % (AUTO) 9.6 % (2-12); NEUTROPHILS % (AUTO) 76.8 % (42-75); PLATELET COUNT 57 X10'3 (140-440); RED BLOOD COUNT 2.36 X10'6 (4.20-5.60); RED CELL DISTRIBUTION WIDTH 19.3 % (11.5-14.5)
[2024-06-07 22:02] LABS: HEMATOCRIT 18.9 % (35.0-45.0); HEMOGLOBIN 6.2 g/dl (12.0-16.0)
[2024-06-08] VITALS (20 sets, daily range): BP systolic 102–150; BP diastolic 54–81; PULSE 87–148; RESP 15–22; TEMP 96.6–98.5; O2SAT 98–100
[2024-06-08 12:34] LABS: BASOPHILS # (AUTO) 0.1 X10'3 (0-0.2); EOSINOPHILS % (AUTO) 0 % (0-6); HEMATOCRIT 32.7 % (35.0-45.0); MEAN CORPUSCULAR HEMOGLOBIN 27.3 PG (27.0-31.0); MEAN CORPUSCULAR VOLUME 82.3 FL (78-98); RED BLOOD COUNT 3.97 X10'6 (4.20-5.60); RED CELL DISTRIBUTION WIDTH 18.9 % (11.5-14.5); WHITE BLOOD COUNT 13.4 X10'3 (4.5-11.0)
[2024-06-08 12:36] LABS: BASOPHILS % (AUTO) 0.4 % (0-1); HEMOGLOBIN 10.9 g/dl (12.0-16.0); LYMPHOCYTES # (AUTO) 2.8 X10'3 (1.1-4.8); LYMPHOCYTES % (AUTO) 21.3 % (21-51); MEAN CORPUSCULAR HGB CONC 33.2 g/dL (33.0-36.5); MEAN PLATELET VOLUME 8.8 FL (7.4-10.4); MONOCYTES # (AUTO) 0.9 X10'3 (0-0.9); MONOCYTES % (AUTO) 7.1 % (2-12); NEUTROPHILS # (AUTO) 9.5 X10'3 (1.8-7.7); NEUTROPHILS % (AUTO) 71.2 % (42-75)
[2024-06-08 12:43] LABS: PLATELET COUNT 50 X10'3 (140-440)
[2024-06-08 12:50] LABS: ALANINE AMINOTRANSFERASE 327 U/L (12-78); ALBUMIN 2.3 G/DL (3.4-5.0); ANION GAP 14 (8-16); ASPARTATE AMINO TRANSFERASE 115 U/L (10-37); BILIRUBIN,TOTAL 10.8 MG/DL (0.1-1.0); BLOOD UREA NITROGEN 93 MG/DL (7-18); BUN/CREATININE RATIO 19.3 (10.0-20.0); CALCIUM 7.9 MG/DL (8.5-10.1); CHLORIDE 107 MMOL/L (99-107); CREATININE 4.83 MG/DL (0.40-0.90); GLUCOSE 317 MG/DL (70-104); PREALBUMIN 10.6 MG/DL (19-36); SODIUM 145 MMOL/L (135-145); TOTAL CARBON DIOXIDE 23.6 MMOL/L (24-32); eCRCL 11 ML/MIN; eGFR 9 ML/MIN
[2024-06-08 12:52] LABS: ALKALINE PHOSPHATASE 1415 IU/L (46-116); PHOSPHORUS 3.8 MG/DL (2.3-4.5); TOTAL PROTEIN 4.5 G/DL (6.4-8.2)
[2024-06-08 12:56] LABS: POTASSIUM 2.9 MMOL/L (3.5-5.1)
[2024-06-08 13:13] LABS: PLATELET ESTIMATE DECREASED
[2024-06-08 13:14] LABS: TARGET CELLS FEW
[2024-06-08 13:15] LABS: TEAR DROP CELLS FEW
[2024-06-08 13:16] LABS: ANISOCYTOSIS 2+
[2024-06-08] MEDS ORDERED: LORazepam 1 MG tablet PO PRN (14:20)
[2024-06-08] MEDS ORDERED: morphine ORAL 5MG/0.25 ML (Conc. morphine) oral syringe PO PRN (14:20)
[2024-06-08] MEDS ORDERED: morphine 2 MG/ML inj. syringe IV PRN (14:20)
[2024-06-08] MEDS: scopolamine 1MG/72H patch 1 PATCH PATCH.TD.3 TD SCH (15:55)
[2024-06-09 05:37] LABS: HEPATITIS C VIRUS ANTIBODY Non Reactive (Non Reactive)
[2024-06-09 08:00] VITALS: RESP 15
[2024-06-09 11:30] VITALS: BP 104/56; RESP 20; TEMP 98.5; O2SAT 100
[2024-06-09 18:00] VITALS: BP 104/46; RESP 20; TEMP 97.7; O2SAT 99
[2024-06-09] MEDS ORDERED: ondansetron/PF 4mg/2ml inj IV PRN (19:30)
[2024-06-09 20:00] VITALS: RESP 20; O2SAT 99
[2024-06-10 06:00] VITALS: BP 119/50; RESP 18; TEMP 97; O2SAT 96
[2024-06-10] MEDS: diphenhydrAMINE 2%/zinc acetate cream TP PRN (08:29)
[2024-06-10] MEDS: LORazepam 2 mg/ml vial IV PRN ×2 (08:38→22:45)
[2024-06-10 08:40] VITALS: RESP 20; O2SAT 99
[2024-06-10] MEDS ORDERED: diphenhydrAMINE 25 MG/10 ML UD oral solution PO PRN (13:00)
[2024-06-10 18:00] VITALS: BP 113/62; PULSE 57; RESP 14; TEMP 97.6; O2SAT 92
[2024-06-10 20:00] VITALS: RESP 12; O2SAT 92
[2024-06-11 06:00] VITALS: BP 123/54; PULSE 83; RESP 18; O2SAT 94
[2024-06-11] MEDS: morphine 10mg/0.5ml (conc. morphine) oral syringe PO PRN ×2 (09:46→19:58)
[2024-06-11 18:00] VITALS: BP 117/49; PULSE 74; RESP 18; TEMP 97.3; O2SAT 96
[2024-06-11] MEDS: haloperidol 1mg tablet PO SCH (21:00)
[2024-06-12] MEDS: LORazepam 2 mg/ml vial IV PRN (18:02)
[2024-06-12 19:45] VITALS: RESP 14
[2024-06-13 04:54] VITALS: TEMP 96
[2024-06-13 09:03] VITALS: RESP 12
== END 2024-06-13 12:25 | DRG 205 ==
LOC: ER 10:28 → ED HOLD 13:38 → PCU 3S 21:55 → SUR 3N 06-09 11:14
PROVIDERS: ADMIT Internal Medicine; ATTEND Internal Medicine
PROC: 0W9B30Z Drainage of Left Pleural Cavity with Drainage Device, Percutaneous Approach (ICD-10-PCS; 2024-05-31)
PROC: 02HV33Z Insertion of Infusion Device into Superior Vena Cava, Percutaneous Approach (ICD-10-PCS; 2024-06-02)
PROC: B548ZZA Ultrasonography of Superior Vena Cava, Guidance (ICD-10-PCS; 2024-06-02)
PROC: 30233N1 Transfusion of Nonautologous Red Blood Cells into Peripheral Vein, Percutaneous Approach (ICD-10-PCS; 2024-06-03)
PROC: 0W9B30Z Drainage of Left Pleural Cavity with Drainage Device, Percutaneous Approach (ICD-10-PCS; principal; 2024-06-05)
DX: T17.590A Other foreign object in bronchus causing asphyxiation, initial encounter (principal); I50.33 Acute on chronic diastolic (congestive) heart failure; J96.21 Acute and chronic respiratory failure with hypoxia; K72.00 Acute and subacute hepatic failure without coma; N39.0 Urinary tract infection, site not specified; I31.39 Other pericardial effusion (noninflammatory); J91.8 Pleural effusion in other conditions classified elsewhere; R18.8 Other ascites; E87.3 Alkalosis; J94.8 Other specified pleural conditions; N17.9 Acute kidney failure, unspecified; Z66 Do not resuscitate; E87.6 Hypokalemia; I25.10 Atherosclerotic heart disease of native coronary artery without angina pectoris; E88.09 Other disorders of plasma-protein metabolism, not elsewhere classified; E11.22 Type 2 diabetes mellitus with diabetic chronic kidney disease; N18.9 Chronic kidney disease, unspecified; D50.8 Other iron deficiency anemias; E83.51 Hypocalcemia; W44.F9XA Other object of natural or organic material, entering into or through a natural orifice, initial encounter; Z51.5 Encounter for palliative care; Z79.899 Other long term (current) drug therapy; Z95.5 Presence of coronary angioplasty implant and graft; Y93.89 Activity, other specified; Y92.89 Other specified places as the place of occurrence of the external cause; Y99.8 Other external cause status
CPT/HCPCS: 32556; 36415; 36430; 36569; 36600; 71045; 71250; 74018; 76700; 76942; 80048; 80053; 80061; 80069; 81001; 82140; 82570; 82607; 82728; 82803; 82948; 83540; 83550; 83605; 83735; 83880; 84100; 84132; 84134; 84145; 84155; 84156; 84165; 84439; 84443; 84540; 85008; 85018; 85025; 85610; 85651; 85730; 86038; 86160; 86592; 86703; 86803; 86885; 86900; 86901; 86920; 87040; 87077; 87081; 87088; 87340; 87522; 93005; 93308; 93970; 94640; 94760; 97110; 97161; 97530; 99291; A4421; A6212; A6213; A6223; A6250; A6258; A6446; A6449; C1729; C1751; C1769; G0378; J0696; J1171; J1250; J1815; J1940; J2003; J2060; J2405; J3480; J3490; J7040; J7070; P9016; P9047